=== PATIENT | male | born 1955 | race Caucasian/White ===

== ENCOUNTER 2020-09-15 12:15 | Inpatient (IN) | payer MEDICAID ==
[~2020-09-15] VITALS: Ht 172.7 cm; Wt 113.4 kg
[~2020-09-15 12:15] MED LIST: AML5T PO
[2020-09-15 13:01] LABS: Basophils # (auto) 0.1 10 ^3/uL (0-0.2); Basophils % (auto) 0.8 % (0.0-2.0); Eosinophils # (auto) 0.1 10 ^3/uL (0-0.8); Eosinophils % (auto) 0.7 % (0.0-7.0); Hematocrit 49.3 % (41.0-53.0); Hemoglobin 16.9 g/dL (13.5-17.5); Lymphocytes # (auto) 3.1 10 ^3/uL (0.4-5.4); Lymphocytes % (auto) 24.8 % (10.0-50.0); Mean Corpuscular Hemoglobin 33.8 pg (28.0-32.0); Mean Corpuscular Hgb Conc. 34.2 g/dL (32.0-36.0); Mean Corpuscular Volume 98.8 fL (80.0-100.0); Monocytes # (auto) 0.9 10 ^3/uL (0-1.3); Monocytes % (auto) 7.1 % (0.0-12.0); Neutrophils # (auto) 8.2 10 ^3/uL (1.6-8.6); Neutrophils % (auto) 66.6 % (37.0-80.0); Nucleated Red Blood Cells % 0.1 %; Platelet Count (auto) 308 10^3/uL (140-450); Red Blood Cells 4.99 10^6/uL (4.5-5.90); Red Cell Distribution Width 16.3 % (11.8-14.3); White Blood Cell 12.4 10^3/uL (4.4-10.8)
[2020-09-15 13:17] LABS: Albumin 3.9 g/dL (3.4-5.0); Anion Gap 11 (5-15); Blood Urea Nitrogen 40 mg/dL (7-18); Calcium 9.4 mg/dL (8.5-10.1); Carbon Dioxide 22 mmol/L (21-32); Chloride 105 mmol/L (98-107); Glucose 128 mg/dL (74-106); Lipase 270 U/L (73-393); Magnesium 2.5 mg/dL (1.6-2.6); Potassium 4.3 mmol/L (3.5-5.1); Sodium 138 mmol/L (136-145)
[2020-09-15 13:19] LABS: Alanine Aminotransferase 40 U/L (16-61); Aspartate Aminotransferase 34 U/L (15-37); GFR African American 34 mL/min; GFR Non-African American 28 mL/min
[2020-09-15 13:23] LABS: INR 1.08 (0.9-1.15); Partial Thromboplastin Time 27.4 sec (23.0-31.2)
[2020-09-15 13:24] LABS: Alkaline Phosphatase 112 U/L (45-117); Bilirubin, Total 1.5 mg/dL (0.2-1.0); Total Protein 8.3 g/dL (6.4-8.2)
[2020-09-15] MEDS ORDERED: cefTRIAXone 1GM/50ML D5W 50 ML IV ONE (16:00)
[2020-09-15] MEDS ORDERED: KETOROLAC TROMETH 30 MG/ML 1ML VIAL ONE (17:07)
[2020-09-15] MEDS ORDERED: KETOROLAC TROMETH 30 MG/ML 1ML VIAL IV ONE (17:15)
[2020-09-15] MEDS ORDERED: LORazepam 2MG/ML-1ML VIAL IV ONE (17:15)
[2020-09-15] MEDS ORDERED: PROCHLORPERAZINE EDISYLATE 5 MG/ML 2ML VIAL IV ONE (17:15)
[2020-09-15] MEDS ORDERED: SODIUM CHLORIDE 0.9% 1,000 ML IV ONE ×2 (17:15→17:30)
[2020-09-15] MEDS ORDERED: ONDANSETRON HCL 4 MG/2 ML VIAL IV PRN (17:30)
[2020-09-15] MEDS ORDERED: ACETAMINOPHEN 325 MG TAB PO PRN (17:30)
[2020-09-15] MEDS ORDERED: MORPHINE SULF INJ 2 MG/ML SYRINGE 1ML IV PRN (17:30)
[2020-09-15] MEDS ORDERED: NITROGLYCERIN 0.4 MG SL TAB SL PRN (17:30)
[2020-09-15] MEDS ORDERED: DOCUSATE SOD 100 MG CAP PO PRN (17:30)
[2020-09-15] MEDS ORDERED: MORPHINE SULFATE 4 MG/ML SYR/VIAL IV PRN (17:30)
[2020-09-15] MEDS ORDERED: TEMAZEPAM 15 MG CAP PO PRN (17:30)
[2020-09-15 18:44] LABS: Urine Bacteria NONE SEEN /hpf (None Seen); Urine Blood 2+ /uL (Negative); Urine Hyaline Cast FEW /lpf (0 - 2); Urine Specific Gravity 1.023 (1.001-1.035); Urine WBC 1 /hpf (0 - 3)
[2020-09-15 18:55] LABS: Amphetamine Screen, Urine POSITIVE (NEGATIVE); Barbiturate Scree,Urine NEGATIVE (NEGATIVE); Benzodiazephine Screen, Urine NEGATIVE (NEGATIVE); Cannabinoid Screen, Urine POSITIVE (NEGATIVE); Cocaine Screen, Urine NEGATIVE (NEGATIVE); Opiate Scree,Urine NEGATIVE (NEGATIVE); Phencyclidine Screen, Urine NEGATIVE (NEGATIVE)
[2020-09-15 20:02] VITALS: BP 107/52
[2020-09-15 21:09] VITALS: BP 107/52
[2020-09-15] MEDS ORDERED: LISI-648 PO (22:23)
[2020-09-15] MEDS ORDERED: METO-169 PO (22:23)
[2020-09-15] MEDS ORDERED: APIX5TAB PO (22:23)
[2020-09-15] MEDS ORDERED: CHOL20007 PO (22:23)
[2020-09-15] MEDS ORDERED: ATOR20TA PO (22:23)
[2020-09-15] MEDS ORDERED: FURO1TAB31 PO (22:23)
[2020-09-16 05:39] VITALS: BP 103/60
[2020-09-16 07:22] LABS: Basophils # (auto) 0.1 10 ^3/uL (0-0.2); Basophils % (auto) 0.7 % (0.0-2.0); Eosinophils # (auto) 0.2 10 ^3/uL (0-0.8); Eosinophils % (auto) 1.4 % (0.0-7.0); Hematocrit 47.7 % (41.0-53.0); Lymphocytes # (auto) 3.3 10 ^3/uL (0.4-5.4); Lymphocytes % (auto) 25.5 % (10.0-50.0); Mean Corpuscular Hemoglobin 32.9 pg (28.0-32.0); Mean Corpuscular Hgb Conc. 33.6 g/dL (32.0-36.0); Mean Corpuscular Volume 97.8 fL (80.0-100.0); Monocytes # (auto) 1.3 10 ^3/uL (0-1.3); Monocytes % (auto) 9.7 % (0.0-12.0); Neutrophils # (auto) 8.2 10 ^3/uL (1.6-8.6); Neutrophils % (auto) 62.7 % (37.0-80.0); Nucleated Red Blood Cells % 0.1 %; Platelet Count (auto) 286 10^3/uL (140-450); Red Blood Cells 4.88 10^6/uL (4.5-5.90); Red Cell Distribution Width 16.9 % (11.8-14.3)
[2020-09-16 07:42] LABS: Albumin 3.6 g/dL (3.4-5.0); Calcium 9.1 mg/dL (8.5-10.1); Potassium 4.4 mmol/L (3.5-5.1)
[2020-09-16 07:46] LABS: BUN/Creatinine Ratio 19.9; Bilirubin, Total 1.3 mg/dL (0.2-1.0); Total Protein 7.6 g/dL (6.4-8.2)
[2020-09-16 09:00] VITALS: BP 107/71
[2020-09-16] MEDS ORDERED: cefTRIAXone 1GM/50ML D5W 50 ML IV ONE (10:00)
[2020-09-16] MEDS: amLODIPine BESYLATE 5 MG TAB PO SCH (10:11)
[2020-09-16] MEDS: FAMOTIDINE 20 MG TAB PO SCH (10:12)
[2020-09-16 13:00] VITALS: BP 102/60
[2020-09-16] MEDS ORDERED: SOD CHL 0.45% 1,000 ML IV SCH ×2 (14:00→14:15)
[2020-09-16] MEDS ORDERED: MORPHINE SULF INJ 2 MG/ML SYRINGE 1ML IV PRN (14:15)
[2020-09-16 17:00] VITALS: BP 103/56
[2020-09-16] MEDS: CIPROFLOXACIN HYDROCHLORIDE 250 MG TAB PO SCH (21:39)
[2020-09-16] MEDS: traZODone HCL 50 MG TAB PO SCH (21:40)
[2020-09-16 22:00] VITALS: BP 117/75
[2020-09-17 05:00] VITALS: BP 100/69
[2020-09-17 06:18] LABS: BUN/Creatinine Ratio 17.6; Calcium 8.4 mg/dL (8.5-10.1)
[2020-09-17 08:00] VITALS: BP 95/43
[2020-09-17 09:00] VITALS: BP 95/43
[2020-09-17] MEDS: amLODIPine BESYLATE 5 MG TAB PO SCH (10:00)
[2020-09-17] MEDS: FAMOTIDINE 20 MG TAB PO SCH (10:27)
[2020-09-17] MEDS: CIPROFLOXACIN HYDROCHLORIDE 250 MG TAB PO SCH ×2 (10:27→21:17)
[2020-09-17 13:00] VITALS: BP 122/83
[2020-09-17 17:00] VITALS: BP 116/49
[2020-09-17] MEDS: traZODone HCL 50 MG TAB PO SCH (21:18)
[2020-09-17 22:00] VITALS: BP 131/75
[2020-09-18 05:00] VITALS: BP 114/62
[2020-09-18 08:01] VITALS: BP 149/69
[2020-09-18 08:52] VITALS: BP 149/69
[2020-09-18] MEDS: FAMOTIDINE 20 MG TAB PO SCH (09:49)
[2020-09-18] MEDS: CIPROFLOXACIN HYDROCHLORIDE 250 MG TAB PO SCH ×2 (09:52→21:10)
[2020-09-18] MEDS: amLODIPine BESYLATE 5 MG TAB PO SCH (09:55)
[2020-09-18 13:00] VITALS: BP 118/84
[2020-09-18] MEDS ORDERED: APIXABAN 5 MG TAB PO ONE (13:30)
[2020-09-18] MEDS: METOPROLOL SUCCINATE XL 50 MG TAB PO SCH (13:33)
[2020-09-18 14:27] LABS: Magnesium 2.4 mg/dL (1.6-2.6)
[2020-09-18 16:29] VITALS: BP 142/70
[2020-09-18] MEDS ORDERED: COLCHICINE 0.6 MG CAP PO ONE (22:00)
[2020-09-18] MEDS ORDERED: traZODone HCL 50 MG TAB PO SCH (22:00)
[2020-09-18 22:26] VITALS: BP 115/70
[2020-09-19] MEDS: HYDROcodone-ACET 5/325MG TAB PO PRN ×2 (04:32→11:48)
[2020-09-19 05:13] VITALS: BP 93/68
[2020-09-19 07:55] LABS: Calcium 8.7 mg/dL (8.5-10.1); Potassium 4.3 mmol/L (3.5-5.1)
[2020-09-19 07:58] LABS: BUN/Creatinine Ratio 13.4
[2020-09-19 08:49] VITALS: BP 104/52
[2020-09-19] MEDS: CIPROFLOXACIN HYDROCHLORIDE 250 MG TAB PO SCH (09:33)
[2020-09-19] MEDS: FAMOTIDINE 20 MG TAB PO SCH (09:34)
[2020-09-19] MEDS: amLODIPine BESYLATE 5 MG TAB PO SCH (09:34)
[2020-09-19] MEDS: METOPROLOL SUCCINATE XL 50 MG TAB PO SCH (09:35)
[2020-09-19] MEDS ORDERED: APIXABAN 5 MG TAB PO SCH ×2 (10:00)
[2020-09-19 13:00] VITALS: BP 123/61
== END 2020-09-19 18:30 | disposition home health service (06) | DRG 468 ==
LOC: ER 12:15 → EDBD 12:15 → TELE 12:16 → TELE-CENTR 19:06
PROVIDERS: ADMIT Nurse Practitioner; ATTEND Nurse Practitioner
DX: N32.0 Bladder-neck obstruction (principal); N17.9 Acute kidney failure, unspecified; E27.8 Other specified disorders of adrenal gland; I13.0 Hypertensive heart and chronic kidney disease with heart failure and stage 1 through stage 4 chronic kidney disease, or unspecified chronic kidney disease; I50.9 Heart failure, unspecified; I47.1 Supraventricular tachycardia; N20.0 Calculus of kidney; N30.90 Cystitis, unspecified without hematuria; N40.0 Benign prostatic hyperplasia without lower urinary tract symptoms; N18.9 Chronic kidney disease, unspecified; Z20.822 Contact with and (suspected) exposure to COVID-19; F17.210 Nicotine dependence, cigarettes, uncomplicated; F15.90 Other stimulant use, unspecified, uncomplicated; F10.10 Alcohol abuse, uncomplicated; E66.9 Obesity, unspecified; E78.5 Hyperlipidemia, unspecified; F12.90 Cannabis use, unspecified, uncomplicated; K92.1 Melena; K00.7 Teething syndrome; Z79.01 Long term (current) use of anticoagulants; Z86.74 Personal history of sudden cardiac arrest; Z83.3 Family history of diabetes mellitus; Z87.11 Personal history of peptic ulcer disease; Z87.19 Personal history of other diseases of the digestive system; Z95.810 Presence of automatic (implantable) cardiac defibrillator; Z68.38 Body mass index [BMI] 38.0-38.9, adult; Q27.8 Other specified congenital malformations of peripheral vascular system
CPT/HCPCS: 36415; 71250; 74176; 80048; 80053; 80061; 80307; 81001; 83036; 83690; 83735; 83880; 84443; 84484; 85025; 85610; 85730; 87086; 87426; 93005; 93306; 96361; 96365; 96375; G0378; J0696; J1885

== ENCOUNTER 2021-05-12 12:18 | Inpatient (IN) | payer MEDICAID ==
[~2021-05-12] VITALS: Ht 175.3 cm; Wt 107.4 kg
[~2021-05-12 12:18] MED LIST changes: +APIX5TAB PO; +ATOR20TA PO; +CHOL20007 PO; +FURO1TAB31 PO; +LISI-716 PO; +METO-289 PO
[2021-05-12 14:20] LABS: Basophils # (auto) 0 10 ^3/uL (0-0.2); Basophils % (auto) 0.2 % (0.0-2.0); Eosinophils # (auto) 0.3 10 ^3/uL (0-0.8); Eosinophils % (auto) 2.8 % (0.0-7.0); Hematocrit 39.5 % (41.0-53.0); Hemoglobin 13.2 g/dL (13.5-17.5); Lymphocytes # (auto) 2.6 10 ^3/uL (0.4-5.4); Lymphocytes % (auto) 21.4 % (10.0-50.0); Mean Corpuscular Hemoglobin 32.9 pg (28.0-32.0); Mean Corpuscular Hgb Conc. 33.4 g/dL (32.0-36.0); Mean Corpuscular Volume 98.6 fL (80.0-100.0); Monocytes # (auto) 1.1 10 ^3/uL (0-1.3); Monocytes % (auto) 9.3 % (0.0-12.0); Neutrophils # (auto) 8.2 10 ^3/uL (1.6-8.6); Neutrophils % (auto) 66.3 % (37.0-80.0); Red Blood Cells 4.01 10^6/uL (4.5-5.90); Red Cell Distribution Width 13.8 % (11.8-14.3); White Blood Cell 12.3 10^3/uL (4.4-10.8)
[2021-05-12 14:33] LABS: INR 1.02 (0.9-1.15); Partial Thromboplastin Time 28.9 sec (23.6-33.0)
[2021-05-12 14:34] LABS: Potassium 4.2 mmol/L (3.5-5.1)
[2021-05-12 14:44] LABS: BUN/Creatinine Ratio 17.1; Bilirubin, Total 0.6 mg/dL (0.2-1.0); Calcium 8.9 mg/dL (8.5-10.1)
[2021-05-12] MEDS ORDERED: cefTRIAXone 1GM/50ML D5W 50 ML IV ONE (14:45)
[2021-05-12] MEDS ORDERED: CLINDAMYCIN 600MG IV 50 ML IV ONE (14:45)
[2021-05-12] MEDS ORDERED: ACETAMINOPHEN 325 MG TAB PO PRN (16:15)
[2021-05-12] MEDS ORDERED: MORPHINE SULFATE INJECTION 2 MG/ML SYRG IV PRN (16:15)
[2021-05-12] MEDS ORDERED: NITROGLYCERIN 0.4 MG SL TAB SL PRN (16:15)
[2021-05-12] MEDS ORDERED: HYDROcodone-ACET 5/325MG TAB PO PRN (16:15)
[2021-05-12] MEDS ORDERED: ONDANSETRON HCL 4 MG/2 ML VIAL IV PRN (16:15)
[2021-05-12] MEDS: FUROSEMIDE 40 MG/4 ML VIAL IV SCH (18:51)
[2021-05-12] MEDS: MORPHINE SULFATE INJECTION 2 MG/ML SYRG IV PRN (18:52)
[2021-05-12 20:00] VITALS: BP 97/66
[2021-05-12] MEDS: CLINDAMYCIN 600MG IV 50 ML IV SCH (21:18)
[2021-05-12] MEDS ORDERED: TEMAZEPAM 15 MG CAP PO PRN (22:00)
[2021-05-12 22:12] VITALS: BP 97/66
[2021-05-13] VITALS (7 sets, daily range): BP systolic 82–121; BP diastolic 54–75
[2021-05-13 05:26] LABS: Basophils # (auto) 0.1 10 ^3/uL (0-0.2); Basophils % (auto) 1.2 % (0.0-2.0); Eosinophils # (auto) 0.4 10 ^3/uL (0-0.8); Eosinophils % (auto) 3.9 % (0.0-7.0); Hematocrit 36.2 % (41.0-53.0); Hemoglobin 12.3 g/dL (13.5-17.5); Lymphocytes # (auto) 2.3 10 ^3/uL (0.4-5.4); Lymphocytes % (auto) 24.1 % (10.0-50.0); Mean Corpuscular Hemoglobin 33.1 pg (28.0-32.0); Mean Corpuscular Volume 97.4 fL (80.0-100.0); Monocytes # (auto) 0.8 10 ^3/uL (0-1.3); Monocytes % (auto) 8.8 % (0.0-12.0); Neutrophils # (auto) 5.9 10 ^3/uL (1.6-8.6); Red Blood Cells 3.71 10^6/uL (4.5-5.90); Red Cell Distribution Width 13.5 % (11.8-14.3); White Blood Cell 9.6 10^3/uL (4.4-10.8)
[2021-05-13 05:49] LABS: Albumin 2.8 g/dL (3.4-5.0); Calcium 8.3 mg/dL (8.5-10.1); Potassium 3.9 mmol/L (3.5-5.1)
[2021-05-13 05:56] LABS: BUN/Creatinine Ratio 18.5; Bilirubin, Total 0.6 mg/dL (0.2-1.0); Total Protein 6.4 g/dL (6.4-8.2)
[2021-05-13] MEDS: FUROSEMIDE 40 MG/4 ML VIAL IV SCH ×2 (06:00→17:46)
[2021-05-13] MEDS: CLINDAMYCIN 600MG IV 50 ML IV SCH ×3 (06:52→21:51)
[2021-05-13] MEDS: ENOXAPARIN SOD 40 MG/0.4 ML SYRINGE SC SCH (09:03)
[2021-05-13] MEDS: ZINC SULFATE 220mg CAP or TAB PO SCH (09:03)
[2021-05-13] MEDS: MORPHINE SULFATE INJECTION 2 MG/ML SYRG IV PRN ×3 (13:51→23:15)
[2021-05-14 05:09] VITALS: BP 126/74
[2021-05-14] MEDS: FUROSEMIDE 40 MG/4 ML VIAL IV SCH ×2 (06:00→18:06)
[2021-05-14] MEDS: CLINDAMYCIN 600MG IV 50 ML IV SCH (06:00)
[2021-05-14 06:37] LABS: Basophils # (auto) 0.1 10 ^3/uL (0-0.2); Basophils % (auto) 0.7 % (0.0-2.0); Eosinophils # (auto) 0.1 10 ^3/uL (0-0.8); Eosinophils % (auto) 0.9 % (0.0-7.0); Hematocrit 35.8 % (41.0-53.0); Hemoglobin 11.9 g/dL (13.5-17.5); Lymphocytes # (auto) 1.3 10 ^3/uL (0.4-5.4); Lymphocytes % (auto) 11.4 % (10.0-50.0); Mean Corpuscular Hemoglobin 31.9 pg (28.0-32.0); Mean Corpuscular Hgb Conc. 33.2 g/dL (32.0-36.0); Mean Corpuscular Volume 96.2 fL (80.0-100.0); Monocytes # (auto) 1.4 10 ^3/uL (0-1.3); Monocytes % (auto) 12.2 % (0.0-12.0); Neutrophils # (auto) 8.4 10 ^3/uL (1.6-8.6); Neutrophils % (auto) 74.8 % (37.0-80.0); Red Blood Cells 3.72 10^6/uL (4.5-5.90); Red Cell Distribution Width 13.7 % (11.8-14.3); White Blood Cell 11.3 10^3/uL (4.4-10.8)
[2021-05-14 07:04] LABS: Potassium 4.3 mmol/L (3.5-5.1)
[2021-05-14 07:14] LABS: Albumin 2.7 g/dL (3.4-5.0); BUN/Creatinine Ratio 16.3; Bilirubin, Total 0.8 mg/dL (0.2-1.0); Calcium 8.3 mg/dL (8.5-10.1); Total Protein 6.4 g/dL (6.4-8.2)
[2021-05-14 09:00] VITALS: BP 122/72
[2021-05-14] MEDS: ENOXAPARIN SOD 40 MG/0.4 ML SYRINGE SC SCH (09:38)
[2021-05-14] MEDS: ZINC SULFATE 220mg CAP or TAB PO SCH (09:38)
[2021-05-14] MEDS: MORPHINE SULFATE INJECTION 2 MG/ML SYRG IV PRN ×3 (10:39→21:40)
[2021-05-14] MEDS ORDERED: VANCOMYCIN PER PHARMACY 0 MG IV SCH (12:00)
[2021-05-14 12:30] VITALS: BP 123/67
[2021-05-14] MEDS ORDERED: VANCOMYCIN 1GM/250ML 250 ML IV SCH (13:00)
[2021-05-14] MEDS ORDERED: MULTIPLE VITAMIN 10 ML, MAGNESIUM SULF SDV 50% 8 MEQ, THIAMINE INJ 100 MG in SODIUM CHL... IV SCH (13:30)
[2021-05-14 17:00] VITALS: BP 117/76
[2021-05-14] MEDS ORDERED: HYDROcodone-ACET 10/325MG TAB PO PRN (21:45)
[2021-05-14] MEDS: PREGABALIN 25 MG CAP PO SCH (21:53)
[2021-05-14 22:00] VITALS: BP 110/66
[2021-05-14 23:36] LABS: CRP High Sensitivity 10.3 mg/dL (< 0.3); Uric Acid 11.2 mg/dL (3.5-7.2)
[2021-05-15 04:21] LABS: Urine Bacteria NONE SEEN /hpf (None Seen); Urine Blood Negative /uL (Negative); Urine Mucus FEW (None Seen); Urine Specific Gravity 1.013 (1.001-1.035); Urine WBC 1 /hpf (0 - 3)
[2021-05-15 04:41] LABS: Amphetamine Screen, Urine POSITIVE (NEGATIVE); Barbiturate Scree,Urine NEGATIVE (NEGATIVE); Benzodiazephine Screen, Urine NEGATIVE (NEGATIVE); Cannabinoid Screen, Urine POSITIVE (NEGATIVE); Cocaine Screen, Urine NEGATIVE (NEGATIVE); Opiate Scree,Urine POSITIVE (NEGATIVE); Phencyclidine Screen, Urine NEGATIVE (NEGATIVE)
[2021-05-15] MEDS: MORPHINE SULFATE INJECTION 2 MG/ML SYRG IV PRN ×2 (04:53→11:49)
[2021-05-15 05:00] VITALS: BP 109/65
[2021-05-15] MEDS: FUROSEMIDE 40 MG/4 ML VIAL IV SCH ×2 (05:39→18:30)
[2021-05-15 07:06] LABS: Albumin 2.7 g/dL (3.4-5.0); BUN/Creatinine Ratio 13.8; Calcium 8.7 mg/dL (8.5-10.1); Potassium 4.4 mmol/L (3.5-5.1)
[2021-05-15 07:09] LABS: Total Protein 6.6 g/dL (6.4-8.2)
[2021-05-15 09:00] VITALS: BP 111/57
[2021-05-15] MEDS: ZINC SULFATE 220mg CAP or TAB PO SCH (09:42)
[2021-05-15] MEDS: ENOXAPARIN SOD 40 MG/0.4 ML SYRINGE SC SCH (09:43)
[2021-05-15] MEDS: METOPROLOL TARTRATE 25 MG TAB PO SCH ×2 (09:43→22:11)
[2021-05-15] MEDS: PREGABALIN 25 MG CAP PO SCH ×2 (09:43→22:12)
[2021-05-15 13:00] VITALS: BP 100/59
[2021-05-15] MEDS ORDERED: methylPREDNISolone SOD SUCC 40 MG/ML VL IV ONE (14:00)
[2021-05-15 17:00] VITALS: BP 136/59
[2021-05-15 22:00] VITALS: BP 105/57
[2021-05-15] MEDS: COLCHICINE 0.6 MG CAP PO SCH (22:11)
[2021-05-16 05:00] VITALS: BP 120/56
[2021-05-16] MEDS: FUROSEMIDE 40 MG/4 ML VIAL IV SCH ×2 (05:43→17:41)
[2021-05-16] MEDS: MORPHINE SULFATE INJECTION 2 MG/ML SYRG IV PRN ×2 (05:45→15:36)
[2021-05-16 09:12] VITALS: BP 140/78
[2021-05-16] MEDS: ZINC SULFATE 220mg CAP or TAB PO SCH (09:53)
[2021-05-16] MEDS: METOPROLOL TARTRATE 25 MG TAB PO SCH ×2 (09:54→21:40)
[2021-05-16] MEDS: COLCHICINE 0.6 MG CAP PO SCH ×2 (09:54→21:35)
[2021-05-16] MEDS: PREGABALIN 25 MG CAP PO SCH ×2 (09:54→21:40)
[2021-05-16] MEDS: ENOXAPARIN SOD 40 MG/0.4 ML SYRINGE SC SCH (10:00)
[2021-05-16 13:17] VITALS: BP 102/76
[2021-05-16 16:34] VITALS: BP 96/72
[2021-05-16 22:08] VITALS: BP 125/73
[2021-05-17 05:00] VITALS: BP 129/60
[2021-05-17] MEDS: FUROSEMIDE 40 MG/4 ML VIAL IV SCH ×2 (06:15→18:00)
[2021-05-17 09:50] VITALS: BP 108/60
[2021-05-17] MEDS: ENOXAPARIN SOD 40 MG/0.4 ML SYRINGE SC SCH (10:00)
[2021-05-17] MEDS: METOPROLOL TARTRATE 25 MG TAB PO SCH (10:01)
[2021-05-17] MEDS: PREGABALIN 25 MG CAP PO SCH (10:01)
[2021-05-17] MEDS: ZINC SULFATE 220mg CAP or TAB PO SCH (10:01)
[2021-05-17] MEDS: COLCHICINE 0.6 MG CAP PO SCH (10:02)
[2021-05-17] MEDS: MORPHINE SULFATE INJECTION 2 MG/ML SYRG IV PRN (10:03)
[2021-05-17] MEDS ORDERED: methylPREDNISolone SOD SUCC 40 MG/ML VL IV ONE (11:30)
[2021-05-17 13:23] VITALS: BP 108/72
[2021-05-17 16:19] VITALS: BP 108/60
== END 2021-05-17 17:31 | disposition home or self-care (01) | DRG 383 ==
LOC: ER 12:18 → TELE-WESTW 16:17
PROVIDERS: ADMIT Internal Medicine; ATTEND Internal Medicine
PROC: 4B02XTZ Measurement of Cardiac Defibrillator, External Approach (ICD-10-PCS; principal; 2021-05-16)
DX: L03.113 Cellulitis of right upper limb (principal); I50.23 Acute on chronic systolic (congestive) heart failure; N17.9 Acute kidney failure, unspecified; I47.1 Supraventricular tachycardia; I13.0 Hypertensive heart and chronic kidney disease with heart failure and stage 1 through stage 4 chronic kidney disease, or unspecified chronic kidney disease; Z86.74 Personal history of sudden cardiac arrest; G62.9 Polyneuropathy, unspecified; M10.9 Gout, unspecified; E78.5 Hyperlipidemia, unspecified; F12.90 Cannabis use, unspecified, uncomplicated; F17.210 Nicotine dependence, cigarettes, uncomplicated; M25.571 Pain in right ankle and joints of right foot; M25.572 Pain in left ankle and joints of left foot; M79.642 Pain in left hand; K00.7 Teething syndrome; M25.561 Pain in right knee; Z20.822 Contact with and (suspected) exposure to COVID-19; I25.10 Atherosclerotic heart disease of native coronary artery without angina pectoris; N18.9 Chronic kidney disease, unspecified; E66.9 Obesity, unspecified; Z79.01 Long term (current) use of anticoagulants; Z71.6 Tobacco abuse counseling; Z79.899 Other long term (current) drug therapy; Z83.3 Family history of diabetes mellitus; Z95.810 Presence of automatic (implantable) cardiac defibrillator; Z68.35 Body mass index [BMI] 35.0-35.9, adult
CPT/HCPCS: 36415; 71045; 76881; 80053; 80202; 80307; 81001; 82607; 83880; 84207; 84425; 84443; 84484; 84550; 85025; 85610; 85652; 85730; 86141; 87205; 87426; 89051; 89060; 93005; 93306; 93971; 96365; 96366; 96375; 97162; G0378; J0696; J2405; J3490

== ENCOUNTER 2021-06-15 20:15 | Inpatient (IN) | payer MEDICAID ==
[~2021-06-15] VITALS: Ht 172.7 cm; Wt 101.7 kg
[2021-06-15 22:06] LABS: Basophils # (auto) 0.1 10 ^3/uL (0-0.2); Basophils % (auto) 1.2 % (0.0-2.0); Eosinophils # (auto) 0.2 10 ^3/uL (0-0.8); Eosinophils % (auto) 3.1 % (0.0-7.0); Hematocrit 37.6 % (41.0-53.0); Hemoglobin 12.9 g/dL (13.5-17.5); Lymphocytes # (auto) 1.9 10 ^3/uL (0.4-5.4); Lymphocytes % (auto) 24.5 % (10.0-50.0); Mean Corpuscular Hgb Conc. 34.3 g/dL (32.0-36.0); Mean Corpuscular Volume 96.3 fL (80.0-100.0); Monocytes # (auto) 0.8 10 ^3/uL (0-1.3); Monocytes % (auto) 10.1 % (0.0-12.0); Neutrophils # (auto) 4.7 10 ^3/uL (1.6-8.6); Neutrophils % (auto) 61.1 % (37.0-80.0); White Blood Cell 7.6 10^3/uL (4.4-10.8)
[2021-06-15 22:26] LABS: Albumin 3.8 g/dL (3.4-5.0); Calcium 8.7 mg/dL (8.5-10.1); Magnesium 3.1 mg/dL (1.6-2.6); Potassium 4.2 mmol/L (3.5-5.1)
[2021-06-15 22:33] LABS: Bilirubin, Total 1.3 mg/dL (0.2-1.0); Total Protein 7.4 g/dL (6.4-8.2)
[2021-06-16] VITALS (7 sets, daily range): BP systolic 114–133; BP diastolic 55–75
[2021-06-16] MEDS ORDERED: MORPHINE SULFATE 4 MG/ML SYR/VIAL IV PRN (01:15)
[2021-06-16] MEDS ORDERED: MORPHINE SULFATE INJECTION 2 MG/ML SYRG IV PRN (01:15)
[2021-06-16] MEDS ORDERED: ONDANSETRON HCL 4 MG/2 ML VIAL IV PRN (01:15)
[2021-06-16] MEDS ORDERED: NITROGLYCERIN 0.4 MG SL TAB SL PRN (01:15)
[2021-06-16] MEDS ORDERED: DOCUSATE SOD 100 MG CAP PO PRN (01:15)
[2021-06-16] MEDS ORDERED: ACETAMINOPHEN 325 MG TAB PO PRN (01:15)
[2021-06-16] MEDS ORDERED: TEMAZEPAM 15 MG CAP PO PRN (01:15)
[2021-06-16] MEDS ORDERED: DICY20TA PO (06:16)
[2021-06-16] MEDS ORDERED: HYDR50TA69 PO (06:16)
[2021-06-16] MEDS ORDERED: SIMV10TA84 PO (06:16)
[2021-06-16] MEDS ORDERED: INFLUENZA QUAD 2021-2022 0.5 ML SYRG IM ONE (06:45)
[2021-06-16] MEDS ORDERED: PNEUMOCOCCAL VACC POLYS 25 MCG/0.5 ML VIAL IM ONE (06:45)
[2021-06-16] MEDS: ENOXAPARIN SOD 40 MG/0.4 ML SYRINGE SC SCH (10:05)
[2021-06-16] MEDS: MULTIPLE VITAMIN TAB PO SCH (10:06)
[2021-06-16] MEDS: HYDROcodone-ACET 5/325MG TAB PO PRN (10:06)
[2021-06-16] MEDS: ASCORBIC ACID 500 MG TAB PO SCH ×2 (10:06→22:00)
[2021-06-16] MEDS: ZINC SULFATE 220mg CAP or TAB PO SCH (10:06)
[2021-06-16] MEDS ORDERED: LISINOPRIL 10 MG TAB PO ONE (13:30)
[2021-06-16] MEDS ORDERED: FUROSEMIDE 40 MG TAB PO ONE (13:30)
[2021-06-16] MEDS ORDERED: COLCHICINE 0.6 MG CAP PO ONE (13:30)
[2021-06-16] MEDS ORDERED: CHOLECALCIFEROL (VITD3) 2,000 UNIT CAP/TAB PO ONE (13:30)
[2021-06-16] MEDS: METOPROLOL TARTRATE 50 MG TAB PO SCH ×2 (15:08→22:00)
[2021-06-16] MEDS: APIXABAN 5 MG TAB PO SCH (22:00)
[2021-06-16] MEDS: SIMVASTATIN 10 MG TABLET PO SCH (22:00)
[2021-06-17 05:00] VITALS: BP 101/74
[2021-06-17] MEDS: METOPROLOL TARTRATE 50 MG TAB PO SCH (05:35)
[2021-06-17] MEDS: HYDROcodone-ACET 5/325MG TAB PO PRN (05:36)
[2021-06-17 06:50] LABS: Basophils # (auto) 0.1 10 ^3/uL (0-0.2); Basophils % (auto) 1.3 % (0.0-2.0); Eosinophils # (auto) 0.4 10 ^3/uL (0-0.8); Eosinophils % (auto) 6.2 % (0.0-7.0); Hematocrit 36.6 % (41.0-53.0); Hemoglobin 12.4 g/dL (13.5-17.5); Lymphocytes # (auto) 2.3 10 ^3/uL (0.4-5.4); Lymphocytes % (auto) 32.2 % (10.0-50.0); Mean Corpuscular Hemoglobin 32.8 pg (28.0-32.0); Mean Corpuscular Hgb Conc. 33.9 g/dL (32.0-36.0); Mean Corpuscular Volume 96.7 fL (80.0-100.0); Monocytes # (auto) 0.7 10 ^3/uL (0-1.3); Monocytes % (auto) 10.5 % (0.0-12.0); Neutrophils # (auto) 3.5 10 ^3/uL (1.6-8.6); Neutrophils % (auto) 49.8 % (37.0-80.0); Red Blood Cells 3.79 10^6/uL (4.5-5.90); Red Cell Distribution Width 14.7 % (11.8-14.3)
[2021-06-17 07:08] LABS: Albumin 3.5 g/dL (3.4-5.0); Calcium 8.5 mg/dL (8.5-10.1); Potassium 4.1 mmol/L (3.5-5.1)
[2021-06-17 07:15] LABS: BUN/Creatinine Ratio 13.9; Bilirubin, Total 1.2 mg/dL (0.2-1.0); Total Protein 6.3 g/dL (6.4-8.2)
[2021-06-17 08:56] VITALS: BP 103/66
[2021-06-17] MEDS: MULTIPLE VITAMIN TAB PO SCH (09:53)
[2021-06-17] MEDS: APIXABAN 5 MG TAB PO SCH (09:53)
[2021-06-17] MEDS: ZINC SULFATE 220mg CAP or TAB PO SCH (09:54)
[2021-06-17] MEDS: ENOXAPARIN SOD 40 MG/0.4 ML SYRINGE SC SCH (09:58)
[2021-06-17] MEDS ORDERED: FUROSEMIDE 40 MG TAB PO SCH (10:00)
[2021-06-17] MEDS ORDERED: CHOLECALCIFEROL (VITD3) 2,000 UNIT CAP/TAB PO SCH (10:00)
[2021-06-17] MEDS ORDERED: LISINOPRIL 10 MG TAB PO SCH (10:00)
[2021-06-17] MEDS ORDERED: COLCHICINE 0.6 MG CAP PO SCH (10:00)
[2021-06-17] MEDS: ASCORBIC ACID 500 MG TAB PO SCH (11:51)
[2021-06-17] MEDS: SIMVASTATIN 10 MG TABLET PO SCH (11:51)
[2021-06-17 13:43] VITALS: BP 106/64
[2021-06-17 16:14] VITALS: BP 103/66
[2021-06-17] MEDS ORDERED: METOPROLOL TARTRATE 50 MG TAB PO SCH (22:00)
== END 2021-06-17 17:35 | disposition home or self-care (01) | DRG 201 ==
LOC: EDBD 20:15 → ER 20:15 → TELE 06-16 01:10 → TELE-WESTW 06-16 03:00
PROVIDERS: ADMIT Internal Medicine; ATTEND Internal Medicine
PROC: 4B02XTZ Measurement of Cardiac Defibrillator, External Approach (ICD-10-PCS; principal; 2021-06-16)
DX: I47.2 Ventricular tachycardia (principal); R57.9 Shock, unspecified; I13.0 Hypertensive heart and chronic kidney disease with heart failure and stage 1 through stage 4 chronic kidney disease, or unspecified chronic kidney disease; I50.42 Chronic combined systolic (congestive) and diastolic (congestive) heart failure; E66.01 Morbid (severe) obesity due to excess calories; E78.5 Hyperlipidemia, unspecified; F12.90 Cannabis use, unspecified, uncomplicated; F15.10 Other stimulant abuse, uncomplicated; Z20.822 Contact with and (suspected) exposure to COVID-19; M10.9 Gout, unspecified; N18.9 Chronic kidney disease, unspecified; Z79.01 Long term (current) use of anticoagulants; Z79.899 Other long term (current) drug therapy; Z86.74 Personal history of sudden cardiac arrest; Z28.21 Immunization not carried out because of patient refusal; Z83.3 Family history of diabetes mellitus; Z87.891 Personal history of nicotine dependence; Z95.810 Presence of automatic (implantable) cardiac defibrillator; Z68.34 Body mass index [BMI] 34.0-34.9, adult
CPT/HCPCS: 36415; 71045; 80053; 83735; 83880; 84484; 85025; 87081; 87426; 93005; G0378

== ENCOUNTER 2022-10-28 13:14 | Inpatient (IN) | payer MEDICARE, MEDICAID ==
[~2022-10-28] VITALS: Ht 175.3 cm; Wt 115.7 kg
[~2022-10-28 13:14] MED LIST changes: +DICY20TA PO; +HYDR50TA69 PO; +SIMV10TA84 PO
[2022-10-28] MEDS ORDERED: methylPREDNISolone SOD SUCC 125 MG/2 ML VL IV ONE (13:45)
[2022-10-28] MEDS ORDERED: ONDANSETRON HCL 4 MG/2 ML VIAL IV ONE (13:45)
[2022-10-28] MEDS ORDERED: MORPHINE SULFATE INJ 2 MG/ml SYRG IV ONE (13:45)
[2022-10-28 14:28] LABS: Basophils # (auto) 0.1 10 ^3/uL (0-0.2); Basophils % (auto) 1.3 % (0.0-2.0); Eosinophils # (auto) 0.4 10 ^3/uL (0-0.8); Eosinophils % (auto) 4.4 % (0.0-7.0); Hematocrit 38.6 % (41.0-53.0); Hemoglobin 12.9 g/dL (13.5-17.5); Lymphocytes % (auto) 21.3 % (10.0-50.0); Mean Corpuscular Hemoglobin 33.6 pg (28.0-32.0); Mean Corpuscular Hgb Conc. 33.4 g/dL (32.0-36.0); Mean Corpuscular Volume 100.5 fL (80.0-100.0); Monocytes # (auto) 0.9 10 ^3/uL (0-1.3); Monocytes % (auto) 9.5 % (0.0-12.0); Neutrophils # (auto) 5.9 10 ^3/uL (1.6-8.6); Neutrophils % (auto) 63.5 % (37.0-80.0); Nucleated Red Blood Cells % 0.1 %; Red Blood Cells 3.84 10^6/uL (4.5-5.90); Red Cell Distribution Width 14.5 % (11.8-14.3); White Blood Cell 9.4 10^3/uL (4.4-10.8)
[2022-10-28 14:38] LABS: Albumin 2.9 g/dL (3.4-5.0); Potassium 4.5 mmol/L (3.5-5.1)
[2022-10-28 14:43] LABS: BUN/Creatinine Ratio 15.3 (10.0-20.0); Bilirubin, Total 0.6 mg/dL (0.2-1.0); Uric Acid 8.8 mg/dL (3.5-7.2)
[2022-10-28] MEDS ORDERED: PRED20TA2 PO (15:08)
[2022-10-28] MEDS ORDERED: HYDR-4902 PO (15:08)
[2022-10-28] MEDS ORDERED: FENO48TA12 PO (18:22)
[2022-10-28] MEDS ORDERED: FURO40TA4 PO (18:22)
[2022-10-28] MEDS ORDERED: ACETAMINOPHEN 325 MG TAB PO PRN (18:30)
[2022-10-28] MEDS ORDERED: NITROGLYCERIN 0.4 MG SL TAB SL PRN ×2 (18:30→22:00)
[2022-10-28] MEDS ORDERED: DOCUSATE SOD 100 MG CAP PO PRN ×2 (18:30→22:00)
[2022-10-28] MEDS ORDERED: MORPHINE SULFATE INJ 2 MG/ml SYRG IV PRN ×2 (18:30→22:00)
[2022-10-28] MEDS ORDERED: ONDANSETRON HCL 4 MG/2 ML VIAL IV PRN ×2 (18:30→22:00)
[2022-10-28] MEDS ORDERED: SODIUM CHLORIDE 0.9% 1,000 ML IV ONE (18:45)
[2022-10-28] MEDS ORDERED: SODIUM CHLOR 0.9% PF (SALINE LOCK) 10ML VIAL/SYR IV SCH (22:00)
[2022-10-29] MEDS: DICYCLOMINE HCL 10 MG CAP PO SCH ×4 (00:16→21:33)
[2022-10-29] MEDS: HYDROcodone-ACET 5/325MG TAB PO PRN (00:16)
[2022-10-29] MEDS: TEMAZEPAM 15 MG CAP PO PRN ×2 (00:17→22:26)
[2022-10-29 05:34] LABS: Hematocrit 36.4 % (41.0-53.0); Mean Corpuscular Volume 100.1 fL (80.0-100.0); Monocytes # (auto) 0.3 10 ^3/uL (0-1.3); Red Blood Cells 3.63 10^6/uL (4.5-5.90); Red Cell Distribution Width 14.5 % (11.8-14.3)
[2022-10-29 05:36] LABS: Basophils # (auto) 0 10 ^3/uL (0-0.2); Basophils % (auto) 0.3 % (0.0-2.0); Eosinophils # (auto) 0.1 10 ^3/uL (0-0.8); Eosinophils % (auto) 0.4 % (0.0-7.0); Hemoglobin 12.6 g/dL (13.5-17.5); Lymphocytes # (auto) 0.8 10 ^3/uL (0.4-5.4); Lymphocytes % (auto) 5.7 % (10.0-50.0); Mean Corpuscular Hemoglobin 34.6 pg (28.0-32.0); Mean Corpuscular Hgb Conc. 34.5 g/dL (32.0-36.0); Monocytes % (auto) 2.3 % (0.0-12.0); Neutrophils # (auto) 13.3 10 ^3/uL (1.6-8.6); Neutrophils % (auto) 91.3 % (37.0-80.0); White Blood Cell 14.5 10^3/uL (4.4-10.8)
[2022-10-29 05:57] LABS: Albumin 2.7 g/dL (3.4-5.0); BUN/Creatinine Ratio 15.8 (10.0-20.0); Calcium 9.3 mg/dL (8.5-10.1); Potassium 4.7 mmol/L (3.5-5.1)
[2022-10-29 05:59] LABS: Bilirubin, Total 0.4 mg/dL (0.2-1.0); Total Protein 6.8 g/dL (6.4-8.2)
[2022-10-29] MEDS ORDERED: ENOXAPARIN SOD 40 MG/0.4 ML SYRINGE SC SCH (10:00)
[2022-10-29] MEDS ORDERED: LISINOPRIL 10 MG TAB PO SCH (10:00)
[2022-10-29] MEDS ORDERED: APIXABAN 5 MG TAB PO SCH (10:00)
[2022-10-29] MEDS ORDERED: FUROSEMIDE 40 MG TAB PO SCH (10:00)
[2022-10-29] MEDS: APIXABAN 5 MG TAB PO SCH ×2 (10:45→21:33)
[2022-10-29] MEDS: PRAVASTATIN SODIUM 20 MG TAB PO SCH (10:47)
[2022-10-29] MEDS: CHOLECALCIFEROL (VITD3) 2,000 UNIT CAP/TAB PO SCH (10:47)
[2022-10-29 15:06] LABS: Alcohol, Urine < 3.0 mg/dL (0-10); Barbiturate Scree,Urine NEGATIVE (NEGATIVE); Cannabinoid Screen, Urine POSITIVE (NEGATIVE)
[2022-10-29 15:15] LABS: Amphetamine Screen, Urine NEGATIVE (NEGATIVE); Benzodiazephine Screen, Urine NEGATIVE (NEGATIVE); Cocaine Screen, Urine NEGATIVE (NEGATIVE); Opiate Scree,Urine NEGATIVE (NEGATIVE); Phencyclidine Screen, Urine NEGATIVE (NEGATIVE)
[2022-10-29 18:25] LABS: Urine Bacteria FEW /hpf (None Seen); Urine Blood Negative /uL (Negative); Urine Hyaline Cast FEW /lpf (0 - 2); Urine WBC 2 /hpf (0 - 3)
[2022-10-29] MEDS: FUROSEMIDE 40 MG TAB PO SCH ×2 (18:39→21:36)
[2022-10-29] MEDS: SODIUM BICARBONATE 650 MG TAB PO SCH (21:32)
[2022-10-29 22:00] VITALS: BP 120/52
[2022-10-30 05:00] VITALS: BP 92/57
[2022-10-30] MEDS: SODIUM BICARBONATE 650 MG TAB PO SCH ×3 (05:15→21:54)
[2022-10-30] MEDS: DICYCLOMINE HCL 10 MG CAP PO SCH ×3 (05:15→21:54)
[2022-10-30 06:22] LABS: Basophils # (auto) 0.1 10 ^3/uL (0-0.2); Hematocrit 41.1 % (41.0-53.0); Neutrophils # (auto) 8.7 10 ^3/uL (1.6-8.6)
[2022-10-30 06:24] LABS: Basophils % (auto) 0.8 % (0.0-2.0); Eosinophils # (auto) 0.2 10 ^3/uL (0-0.8); Eosinophils % (auto) 1.2 % (0.0-7.0); Hemoglobin 13.8 g/dL (13.5-17.5); Lymphocytes # (auto) 3.2 10 ^3/uL (0.4-5.4); Lymphocytes % (auto) 24.7 % (10.0-50.0); Mean Corpuscular Hgb Conc. 33.4 g/dL (32.0-36.0); Mean Corpuscular Volume 101.7 fL (80.0-100.0); Monocytes # (auto) 0.8 10 ^3/uL (0-1.3); Monocytes % (auto) 6.1 % (0.0-12.0); Neutrophils % (auto) 67.2 % (37.0-80.0); Nucleated Red Blood Cells % 0.2 %; Red Blood Cells 4.04 10^6/uL (4.5-5.90); Red Cell Distribution Width 14.3 % (11.8-14.3); White Blood Cell 12.9 10^3/uL (4.4-10.8)
[2022-10-30 06:49] LABS: Potassium 5.1 mmol/L (3.5-5.1)
[2022-10-30 07:00] LABS: BUN/Creatinine Ratio 20.1 (10.0-20.0); Calcium 9.8 mg/dL (8.5-10.1); Magnesium 2.8 mg/dL (1.6-2.6)
[2022-10-30 09:00] VITALS: BP 107/79
[2022-10-30] MEDS: PRAVASTATIN SODIUM 20 MG TAB PO SCH (09:58)
[2022-10-30] MEDS: CHOLECALCIFEROL (VITD3) 2,000 UNIT CAP/TAB PO SCH (09:58)
[2022-10-30] MEDS: APIXABAN 5 MG TAB PO SCH ×2 (09:58→21:54)
[2022-10-30] MEDS ORDERED: PANTOPRAZOLE 40 MG TAB PO SCH (10:00)
[2022-10-30] MEDS ORDERED: METOPROLOL SUCCINATE XL 50 MG TAB PO SCH (10:00)
[2022-10-30] MEDS: FUROSEMIDE 40 MG TAB PO SCH (10:05)
[2022-10-30] MEDS: HYDROcodone-ACET 5/325MG TAB PO PRN (10:20)
[2022-10-30 13:00] VITALS: BP 118/75
[2022-10-30 17:00] VITALS: BP 98/74
[2022-10-30 22:00] VITALS: BP 136/74
[2022-10-30] MEDS: AMIODARONE HCL 200 MG TAB PO SCH (22:00)
[2022-10-31 05:00] VITALS: BP 147/77
[2022-10-31] MEDS: DICYCLOMINE HCL 10 MG CAP PO SCH ×2 (05:48→13:43)
[2022-10-31] MEDS: SODIUM BICARBONATE 650 MG TAB PO SCH ×2 (05:49→13:43)
[2022-10-31 09:00] VITALS: BP 107/74
[2022-10-31] MEDS ORDERED: ALLOPURINOL 100 MG TAB PO SCH (10:00)
[2022-10-31] MEDS ORDERED: predniSONE 20 MG TAB PO SCH (10:00)
[2022-10-31] MEDS ORDERED: FUROSEMIDE 40 MG TAB PO SCH (10:00)
[2022-10-31] MEDS: APIXABAN 5 MG TAB PO SCH (10:17)
[2022-10-31] MEDS: AMIODARONE HCL 200 MG TAB PO SCH (10:17)
[2022-10-31] MEDS: CHOLECALCIFEROL (VITD3) 2,000 UNIT CAP/TAB PO SCH (10:18)
[2022-10-31] MEDS: PRAVASTATIN SODIUM 20 MG TAB PO SCH (10:18)
[2022-10-31 13:00] VITALS: BP 118/85
[2022-10-31] MEDS ORDERED: PRAV20TA3 PO (13:37)
[2022-10-31] MEDS ORDERED: METO-6 PO (13:37)
[2022-10-31] MEDS ORDERED: AMIO200T33 PO (13:37)
[2022-10-31] MEDS ORDERED: PRED20TA2 PO (13:37)
[2022-10-31] MEDS ORDERED: ALL100T PO (13:37)
[2022-10-31] MEDS ORDERED: SODI650T PO (13:37)
[2022-10-31] MEDS ORDERED: HYDR-4902 PO (13:40)
[2022-10-31 14:14] VITALS: BP 107/74
[2022-10-31 16:48] VITALS: BP 119/84
== END 2022-10-31 17:43 | disposition home health service (06) | DRG 553 ==
LOC: ER 13:14 → EDBD 13:14 → TELE 18:29 → TELE-WESTW 10-29 15:56
PROVIDERS: ADMIT Nurse Practitioner Family; ATTEND Nurse Practitioner
DX: M10.9 Gout, unspecified (principal); I50.33 Acute on chronic diastolic (congestive) heart failure; I13.0 Hypertensive heart and chronic kidney disease with heart failure and stage 1 through stage 4 chronic kidney disease, or unspecified chronic kidney disease; E87.20 Acidosis, unspecified; I47.20 Ventricular tachycardia, unspecified; N18.30 Chronic kidney disease, stage 3 unspecified; E66.01 Morbid (severe) obesity due to excess calories; E78.5 Hyperlipidemia, unspecified; E88.09 Other disorders of plasma-protein metabolism, not elsewhere classified; E27.8 Other specified disorders of adrenal gland; F17.210 Nicotine dependence, cigarettes, uncomplicated; Z60.2 Problems related to living alone; N40.0 Benign prostatic hyperplasia without lower urinary tract symptoms; Z86.74 Personal history of sudden cardiac arrest; F15.10 Other stimulant abuse, uncomplicated; I49.3 Ventricular premature depolarization; K40.20 Bilateral inguinal hernia, without obstruction or gangrene, not specified as recurrent; N32.0 Bladder-neck obstruction; Z79.01 Long term (current) use of anticoagulants; Z95.810 Presence of automatic (implantable) cardiac defibrillator; Z79.899 Other long term (current) drug therapy; Z82.49 Family history of ischemic heart disease and other diseases of the circulatory system; Z83.3 Family history of diabetes mellitus; Z87.11 Personal history of peptic ulcer disease; Z87.442 Personal history of urinary calculi; Z68.34 Body mass index [BMI] 34.0-34.9, adult
CPT/HCPCS: 36415; 71046; 76775; 80048; 80053; 80061; 80307; 81001; 82550; 83735; 83880; 84443; 84550; 85025; 93005; 93306; 96374; 97110; 97116; 97163; 97530; G0378; J2405

== ENCOUNTER 2023-01-23 23:12 | Inpatient (IN) | payer MEDICARE, MEDICAID ==
[~2023-01-23] VITALS: Ht 175.3 cm; Wt 119.0 kg
[~2023-01-23 23:12] MED LIST changes: +ALL100T PO; +AMIO200T33 PO; -AML5T PO; -ATOR20TA PO; +FENO48TA13 PO; -FURO1TAB31 PO; +FURO40TA4 PO; +HYDR-4902 PO; -LISI-716 PO; -METO-289 PO; +METO-6 PO; +PRAV20TA3 PO; +PRED20TA2 PO; -SIMV10TA84 PO; +SODI650T PO
[2023-01-24] VITALS (18 sets, daily range): BP systolic 96–120; BP diastolic 43–93; PULSE 51–78; RESP 12–23; TEMP 96.7–99.7; O2SAT 92–100
[2023-01-24] MEDS ORDERED: ONDANSETRON HCL 4 MG/2 ML VIAL IV ONE (01:45)
[2023-01-24] MEDS ORDERED: DexAMETHasone SOD PHOS 10MG/1ML VIAL INJ IV ONE (01:45)
[2023-01-24] MEDS ORDERED: SODIUM CHLORIDE 0.9% 500 ML IV ONE (01:45)
[2023-01-24] MEDS ORDERED: KETOROLAC TROMETH 30 MG/ML 1ML VIAL IV ONE (01:45)
[2023-01-24 02:18] LABS: Basophils # (auto) 0.1 10 ^3/uL (0-0.2); Basophils % (auto) 0.6 % (0.0-2.0); Eosinophils # (auto) 0.1 10 ^3/uL (0-0.8); Eosinophils % (auto) 0.9 % (0.0-7.0); Hematocrit 35.9 % (41.0-53.0); Hemoglobin 11.5 g/dL (13.5-17.5); Lymphocytes # (auto) 1.4 10 ^3/uL (0.4-5.4); Lymphocytes % (auto) 11.6 % (10.0-50.0); Mean Corpuscular Hemoglobin 32.3 pg (28.0-32.0); Mean Corpuscular Hgb Conc. 32.1 g/dL (32.0-36.0); Mean Corpuscular Volume 100.5 fL (80.0-100.0); Monocytes # (auto) 1.2 10 ^3/uL (0-1.3); Monocytes % (auto) 9.9 % (0.0-12.0); Neutrophils # (auto) 9.5 10 ^3/uL (1.6-8.6); Nucleated Red Blood Cells % 0.1 %; Red Blood Cells 3.57 10^6/uL (4.5-5.90); Red Cell Distribution Width 16.3 % (11.8-14.3); White Blood Cell 12.3 10^3/uL (4.4-10.8)
[2023-01-24 06:12] LABS: BUN/Creatinine Ratio 15.3 (10.0-20.0); Potassium 4.6 mmol/L (3.5-5.1)
[2023-01-24 06:13] LABS: Albumin 3.2 g/dL (3.4-5.0); Bilirubin, Total 0.6 mg/dL (0.2-1.0); Total Protein 7.2 g/dL (6.4-8.2)
[2023-01-24 06:14] LABS: Uric Acid 8.4 mg/dL (3.5-7.2)
[2023-01-24] MEDS ORDERED: MIDAZOLAM HCL 2MG/2ML 2ml VIAL (1mg/ml) IV ONE (06:45)
[2023-01-24] MEDS ORDERED: HYDROmorphone HCL 2 MG/ML VL/or syr IV ONE (07:15)
[2023-01-24] MEDS ORDERED: ACETAMINOPHEN 325 MG TAB PO PRN (08:00)
[2023-01-24] MEDS ORDERED: NITROGLYCERIN 0.4 MG SL TAB SL PRN (08:00)
[2023-01-24] MEDS ORDERED: ONDANSETRON HCL 4 MG/2 ML VIAL IV PRN (08:00)
[2023-01-24] MEDS ORDERED: MORPHINE SULFATE INJ 2 MG/ml SYRG IV PRN (08:00)
[2023-01-24] MEDS ORDERED: DOCUSATE SOD 100 MG CAP PO PRN (08:00)
[2023-01-24] MEDS: SODIUM CHLORIDE 0.9% 1,000 ML IV SCH (08:15)
[2023-01-24] MEDS ORDERED: AMIODARONE 450mg/250ml AE 250 ML IV SCH (09:00)
[2023-01-24] MEDS ORDERED: HEPARIN SODIUM (PORCINE) 5000 UNITS/ML 1ML VIAL SC SCH (10:00)
[2023-01-24] MEDS: ASPirin 81 mg TAB PO SCH (10:10)
[2023-01-24 12:22] LABS: Alcohol, Urine < 3.0 mg/dL (0-10); Cannabinoid Screen, Urine POSITIVE (NEGATIVE)
[2023-01-24 13:44] LABS: Amphetamine Screen, Urine NEGATIVE (NEGATIVE); Barbiturate Scree,Urine NEGATIVE (NEGATIVE); Benzodiazephine Screen, Urine POSITIVE (NEGATIVE); Cocaine Screen, Urine NEGATIVE (NEGATIVE); Opiate Scree,Urine NEGATIVE (NEGATIVE); Phencyclidine Screen, Urine NEGATIVE (NEGATIVE)
[2023-01-24] MEDS: AMIODARONE 450mg/250ml AE 250 ML IV SCH (15:28)
[2023-01-24] MEDS ORDERED: SIMV10TA20 PO (17:01)
[2023-01-24] MEDS ORDERED: CITA10TA5 PO (17:01)
[2023-01-24] MEDS ORDERED: LISI10TA34 PO (17:01)
[2023-01-24] MEDS ORDERED: HYDROcodone-ACET 10/325MG TAB PO PRN (17:15)
[2023-01-24 18:52] LABS: Potassium 5.4 mmol/L (3.5-5.1)
[2023-01-24 18:59] LABS: Albumin 2.8 g/dL (3.4-5.0); BUN/Creatinine Ratio 17.2 (10.0-20.0); Bilirubin, Total 0.4 mg/dL (0.2-1.0); Calcium 8.5 mg/dL (8.5-10.1); Phosphorus 3.4 mg/dL (2.5-4.90); Total Protein 6.1 g/dL (6.4-8.2)
[2023-01-24] MEDS ORDERED: traZODone HCL 50 MG TAB PO PRN (21:15)
[2023-01-24] MEDS: APIXABAN 5 MG TAB PO SCH (21:50)
[2023-01-24] MEDS: SODIUM BICARBONATE 650 MG TAB PO SCH (21:50)
[2023-01-24] MEDS: ATORVASTATIN 20 MG TAB PO SCH (21:51)
[2023-01-24] MEDS: DICYCLOMINE HCL 10 MG CAP PO SCH (21:53)
[2023-01-25] VITALS (32 sets, daily range): BP systolic 91–138; BP diastolic 40–73; PULSE 44–81; RESP 8–24; TEMP 97–98.1; O2SAT 93–100
[2023-01-25] MEDS: SODIUM CHLORIDE 0.9% 1,000 ML IV SCH ×3 (00:37→15:42)
[2023-01-25 05:18] LABS: Potassium 5.1 mmol/L (3.5-5.1)
[2023-01-25 05:27] LABS: Albumin 2.7 g/dL (3.4-5.0); BUN/Creatinine Ratio 18.9 (10.0-20.0); Bilirubin, Total 0.3 mg/dL (0.2-1.0); Calcium 8.5 mg/dL (8.5-10.1); Total Protein 6.7 g/dL (6.4-8.2); Uric Acid 7.2 mg/dL (3.5-7.2)
[2023-01-25] MEDS: DICYCLOMINE HCL 10 MG CAP PO SCH ×3 (05:51→22:28)
[2023-01-25] MEDS: AMIODARONE 450mg/250ml AE 250 ML IV SCH (05:57)
[2023-01-25 06:10] LABS: Basophils # (auto) 0 10 ^3/uL (0-0.2); Basophils % (auto) 0.3 % (0.0-2.0); Eosinophils # (auto) 0 10 ^3/uL (0-0.8); Hematocrit 34.4 % (41.0-53.0); Hemoglobin 11.4 g/dL (13.5-17.5); Lymphocytes # (auto) 1.7 10 ^3/uL (0.4-5.4); Lymphocytes % (auto) 9.6 % (10.0-50.0); Mean Corpuscular Hemoglobin 33.2 pg (28.0-32.0); Mean Corpuscular Hgb Conc. 33.3 g/dL (32.0-36.0); Mean Corpuscular Volume 99.6 fL (80.0-100.0); Monocytes # (auto) 1.1 10 ^3/uL (0-1.3); Monocytes % (auto) 6.5 % (0.0-12.0); Neutrophils # (auto) 14.5 10 ^3/uL (1.6-8.6); Neutrophils % (auto) 83.6 % (37.0-80.0); Red Blood Cells 3.45 10^6/uL (4.5-5.90); White Blood Cell 17.3 10^3/uL (4.4-10.8)
[2023-01-25] MEDS: ASPirin 81 mg TAB PO SCH (07:56)
[2023-01-25] MEDS: APIXABAN 5 MG TAB PO SCH ×2 (07:56→22:29)
[2023-01-25] MEDS: METOPROLOL SUCCINATE XL 50 MG TAB PO SCH (07:57)
[2023-01-25] MEDS: CITALOPRAM HYDROBR 20 MG TAB PO SCH (07:57)
[2023-01-25] MEDS: ALLOPURINOL 100 MG TAB PO SCH (07:57)
[2023-01-25] MEDS: predniSONE 20 MG TAB PO SCH (07:57)
[2023-01-25] MEDS: SODIUM BICARBONATE 650 MG TAB PO SCH ×2 (07:58→22:29)
[2023-01-25] MEDS ORDERED: FUROSEMIDE 20 MG TAB PO SCH (10:00)
[2023-01-25] MEDS ORDERED: COLCHICINE 0.6 MG CAP PO SCH (10:00)
[2023-01-25] MEDS ORDERED: LISINOPRIL 10 MG TAB PO SCH (10:00)
[2023-01-25] MEDS ORDERED: CYANOCOBALAMIN (B-12) 1000 MCG/1 ML VIAL IM ONE (19:30)
[2023-01-25] MEDS: ATORVASTATIN 20 MG TAB PO SCH (22:29)
[2023-01-25] MEDS: traZODone HCL 50 MG TAB PO PRN (22:29)
[2023-01-26] VITALS (23 sets, daily range): BP systolic 84–176; BP diastolic 36–85; PULSE 52–67; RESP 7–26; TEMP 97.4–98; O2SAT 90–99
[2023-01-26] MEDS: AMIODARONE 450mg/250ml AE 250 ML IV SCH ×3 (04:20→21:49)
[2023-01-26 06:04] LABS: Basophils # (auto) 0 10 ^3/uL (0-0.2); Basophils % (auto) 0.2 % (0.0-2.0); Eosinophils # (auto) 0 10 ^3/uL (0-0.8); Eosinophils % (auto) 0.2 % (0.0-7.0); Hematocrit 32.8 % (41.0-53.0); Hemoglobin 10.9 g/dL (13.5-17.5); Lymphocytes # (auto) 1.7 10 ^3/uL (0.4-5.4); Lymphocytes % (auto) 12.5 % (10.0-50.0); Mean Corpuscular Hemoglobin 32.7 pg (28.0-32.0); Mean Corpuscular Hgb Conc. 33.3 g/dL (32.0-36.0); Mean Corpuscular Volume 98.4 fL (80.0-100.0); Monocytes # (auto) 0.8 10 ^3/uL (0-1.3); Monocytes % (auto) 5.9 % (0.0-12.0); Neutrophils # (auto) 10.7 10 ^3/uL (1.6-8.6); Neutrophils % (auto) 81.2 % (37.0-80.0); Nucleated Red Blood Cells % 0.1 %; Red Blood Cells 3.34 10^6/uL (4.5-5.90); White Blood Cell 13.2 10^3/uL (4.4-10.8)
[2023-01-26 06:34] LABS: Albumin 2.7 g/dL (3.4-5.0); BUN/Creatinine Ratio 21.3 (10.0-20.0); Bilirubin, Total 0.2 mg/dL (0.2-1.0); Calcium 8.5 mg/dL (8.5-10.1); Total Protein 5.8 g/dL (6.4-8.2)
[2023-01-26 07:01] LABS: Potassium 5.6 mmol/L (3.5-5.1)
[2023-01-26] MEDS ORDERED: SODIUM ZIRCONIUM CYCL 10 GM PAK PO ONE ×3 (07:15→17:30)
[2023-01-26] MEDS: CYANOCOBALAMIN 500 MCG TAB PO SCH (08:05)
[2023-01-26] MEDS: predniSONE 20 MG TAB PO SCH (08:05)
[2023-01-26] MEDS: SODIUM BICARBONATE 650 MG TAB PO SCH ×2 (08:05→21:49)
[2023-01-26] MEDS: ALLOPURINOL 100 MG TAB PO SCH (08:06)
[2023-01-26] MEDS: DICYCLOMINE HCL 10 MG CAP PO SCH ×3 (08:06→21:48)
[2023-01-26] MEDS: METOPROLOL SUCCINATE XL 50 MG TAB PO SCH (08:06)
[2023-01-26] MEDS: CITALOPRAM HYDROBR 20 MG TAB PO SCH (08:06)
[2023-01-26] MEDS: APIXABAN 5 MG TAB PO SCH ×2 (08:06→21:50)
[2023-01-26] MEDS: ASPirin 81 mg TAB PO SCH (08:07)
[2023-01-26] MEDS: SODIUM CHLORIDE 0.9% 1,000 ML IV SCH (08:20)
[2023-01-26] MEDS ORDERED: SODIUM BICARBONATE 50ML VIAL 75 ML in SOD CHL 0.45% 1,000 ML IV ONE (17:30)
[2023-01-26] MEDS: ATORVASTATIN 20 MG TAB PO SCH (21:48)
[2023-01-26] MEDS: AMIODARONE HCL 200 MG TAB PO SCH (21:48)
[2023-01-26] MEDS: traZODone HCL 50 MG TAB PO PRN (21:55)
[2023-01-27] VITALS (7 sets, daily range): BP systolic 113–151; BP diastolic 58–80; PULSE 54–70; RESP 16–18; TEMP 97.4–98.5; O2SAT 94–97
[2023-01-27] MEDS: DICYCLOMINE HCL 10 MG CAP PO SCH ×3 (05:46→21:17)
[2023-01-27] MEDS: METOPROLOL SUCCINATE XL 50 MG TAB PO SCH (09:42)
[2023-01-27] MEDS: predniSONE 20 MG TAB PO SCH (09:42)
[2023-01-27] MEDS: APIXABAN 5 MG TAB PO SCH ×2 (09:43→21:17)
[2023-01-27] MEDS: ASPirin 81 mg TAB PO SCH (09:44)
[2023-01-27] MEDS: amLODIPine BESYLATE 5 MG TAB PO SCH (09:50)
[2023-01-27] MEDS: CITALOPRAM HYDROBR 20 MG TAB PO SCH (09:50)
[2023-01-27] MEDS: ALLOPURINOL 100 MG TAB PO SCH (09:51)
[2023-01-27] MEDS: CYANOCOBALAMIN 500 MCG TAB PO SCH (09:51)
[2023-01-27] MEDS: SODIUM BICARBONATE 650 MG TAB PO SCH ×2 (09:52→21:17)
[2023-01-27] MEDS: AMIODARONE HCL 200 MG TAB PO SCH ×2 (10:08→21:18)
[2023-01-27 13:49] LABS: Basophils # (auto) 0 10 ^3/uL (0-0.2); Basophils % (auto) 0.4 % (0.0-2.0); Eosinophils # (auto) 0.1 10 ^3/uL (0-0.8); Hemoglobin 10.9 g/dL (13.5-17.5); Lymphocytes # (auto) 0.8 10 ^3/uL (0.4-5.4); Lymphocytes % (auto) 7.6 % (10.0-50.0); Mean Corpuscular Hemoglobin 32.6 pg (28.0-32.0); Mean Corpuscular Hgb Conc. 33.1 g/dL (32.0-36.0); Mean Corpuscular Volume 98.6 fL (80.0-100.0); Monocytes # (auto) 0.6 10 ^3/uL (0-1.3); Monocytes % (auto) 5.9 % (0.0-12.0); Neutrophils # (auto) 8.9 10 ^3/uL (1.6-8.6); Neutrophils % (auto) 85.1 % (37.0-80.0); Red Blood Cells 3.35 10^6/uL (4.5-5.90); White Blood Cell 10.4 10^3/uL (4.4-10.8)
[2023-01-27 13:57] LABS: Albumin 2.7 g/dL (3.4-5.0); Calcium 8.5 mg/dL (8.5-10.1); Potassium 4.5 mmol/L (3.5-5.1)
[2023-01-27 14:00] LABS: Bilirubin, Total 0.4 mg/dL (0.2-1.0); Total Protein 6.5 g/dL (6.4-8.2)
[2023-01-27] MEDS: traZODone HCL 50 MG TAB PO PRN (21:17)
[2023-01-27] MEDS: ATORVASTATIN 20 MG TAB PO SCH (21:18)
[2023-01-28] VITALS (7 sets, daily range): BP systolic 113–139; BP diastolic 58–89; PULSE 59–73; RESP 18–19; TEMP 97.6–98.2; O2SAT 96–98
[2023-01-28] MEDS: DICYCLOMINE HCL 10 MG CAP PO SCH ×3 (05:46→21:20)
[2023-01-28 05:47] LABS: Basophils # (auto) 0.1 10 ^3/uL (0-0.2); Basophils % (auto) 0.4 % (0.0-2.0); Eosinophils # (auto) 0.2 10 ^3/uL (0-0.8); Eosinophils % (auto) 1.3 % (0.0-7.0); Hematocrit 33.2 % (41.0-53.0); Hemoglobin 10.9 g/dL (13.5-17.5); Lymphocytes # (auto) 2.4 10 ^3/uL (0.4-5.4); Lymphocytes % (auto) 18.8 % (10.0-50.0); Mean Corpuscular Hemoglobin 32.2 pg (28.0-32.0); Mean Corpuscular Hgb Conc. 32.7 g/dL (32.0-36.0); Mean Corpuscular Volume 98.5 fL (80.0-100.0); Monocytes # (auto) 0.9 10 ^3/uL (0-1.3); Monocytes % (auto) 7.4 % (0.0-12.0); Neutrophils # (auto) 9.2 10 ^3/uL (1.6-8.6); Neutrophils % (auto) 72.1 % (37.0-80.0); Red Blood Cells 3.38 10^6/uL (4.5-5.90); Red Cell Distribution Width 15.9 % (11.8-14.3); White Blood Cell 12.8 10^3/uL (4.4-10.8)
[2023-01-28 06:00] LABS: Calcium 8.6 mg/dL (8.5-10.1); Potassium 4.6 mmol/L (3.5-5.1)
[2023-01-28 06:06] LABS: Albumin 2.7 g/dL (3.4-5.0); BUN/Creatinine Ratio 15.2 (10.0-20.0); Bilirubin, Total 0.5 mg/dL (0.2-1.0); Total Protein 6.3 g/dL (6.4-8.2)
[2023-01-28] MEDS: ASPirin 81 mg TAB PO SCH (09:28)
[2023-01-28] MEDS: CYANOCOBALAMIN 500 MCG TAB PO SCH (09:28)
[2023-01-28] MEDS: SODIUM BICARBONATE 650 MG TAB PO SCH ×2 (09:29→21:19)
[2023-01-28] MEDS: APIXABAN 5 MG TAB PO SCH ×2 (09:29→21:20)
[2023-01-28] MEDS: AMIODARONE HCL 200 MG TAB PO SCH ×2 (09:29→21:20)
[2023-01-28] MEDS: CITALOPRAM HYDROBR 20 MG TAB PO SCH (09:30)
[2023-01-28] MEDS: predniSONE 20 MG TAB PO SCH (09:30)
[2023-01-28] MEDS: amLODIPine BESYLATE 5 MG TAB PO SCH (09:30)
[2023-01-28] MEDS: ALLOPURINOL 100 MG TAB PO SCH (09:30)
[2023-01-28] MEDS: METOPROLOL SUCCINATE XL 50 MG TAB PO SCH (09:31)
[2023-01-28] MEDS: ATORVASTATIN 20 MG TAB PO SCH (21:19)
[2023-01-28] MEDS: traZODone HCL 50 MG TAB PO PRN (21:20)
[2023-01-29] VITALS (7 sets, daily range): BP systolic 135–145; BP diastolic 65–83; PULSE 52–67; RESP 16–20; TEMP 97.4–98.6; O2SAT 94–97
[2023-01-29] MEDS: DICYCLOMINE HCL 10 MG CAP PO SCH ×2 (05:46→14:41)
[2023-01-29 07:09] LABS: Potassium 4.5 mmol/L (3.5-5.1)
[2023-01-29 07:13] LABS: BUN/Creatinine Ratio 16.1 (10.0-20.0)
[2023-01-29] MEDS: AMIODARONE HCL 200 MG TAB PO SCH (09:50)
[2023-01-29] MEDS: APIXABAN 5 MG TAB PO SCH (09:50)
[2023-01-29] MEDS: ASPirin 81 mg TAB PO SCH (09:50)
[2023-01-29] MEDS: CITALOPRAM HYDROBR 20 MG TAB PO SCH (09:50)
[2023-01-29] MEDS: CYANOCOBALAMIN 500 MCG TAB PO SCH (09:51)
[2023-01-29] MEDS: METOPROLOL SUCCINATE XL 50 MG TAB PO SCH (09:51)
[2023-01-29] MEDS: SODIUM BICARBONATE 650 MG TAB PO SCH (09:52)
[2023-01-29] MEDS: predniSONE 20 MG TAB PO SCH (09:52)
[2023-01-29] MEDS: amLODIPine BESYLATE 5 MG TAB PO SCH (09:52)
[2023-01-29] MEDS: ALLOPURINOL 100 MG TAB PO SCH (09:52)
[2023-01-29] MEDS ORDERED: APIX5TAB PO (13:43)
[2023-01-29] MEDS ORDERED: SODI650T PO (13:43)
[2023-01-29] MEDS ORDERED: AML5T PO (13:43)
[2023-01-29] MEDS ORDERED: ASPI-325 PO (13:43)
[2023-01-29] MEDS ORDERED: METO-6 PO (13:43)
[2023-01-29] MEDS ORDERED: ALL100T PO (13:43)
[2023-01-29] MEDS ORDERED: AMIO200T33 PO (13:43)
[2023-01-29] MEDS ORDERED: ATOR20TA50 PO (13:43)
[2023-01-29] MEDS ORDERED: HYDR-4798 PO (14:00)
== END 2023-01-29 19:30 | disposition home health service (06) | DRG 683 ==
LOC: EDBD 23:12 → ER 23:12 → TELE 01-24 07:54 → DOU IN ICU 01-24 14:30 → TELE-CENTR 01-26 15:07
PROVIDERS: ADMIT Nurse Practitioner; ATTEND Nurse Practitioner
PROC: 4A00X4Z Measurement of Central Nervous Electrical Activity, External Approach (ICD-10-PCS; 2023-01-25)
PROC: 4B02XTZ Measurement of Cardiac Defibrillator, External Approach (ICD-10-PCS; principal; 2023-01-26)
DX: N17.9 Acute kidney failure, unspecified (principal); I13.0 Hypertensive heart and chronic kidney disease with heart failure and stage 1 through stage 4 chronic kidney disease, or unspecified chronic kidney disease; I47.20 Ventricular tachycardia, unspecified; I50.42 Chronic combined systolic (congestive) and diastolic (congestive) heart failure; I49.3 Ventricular premature depolarization; I49.9 Cardiac arrhythmia, unspecified; N18.32 Chronic kidney disease, stage 3b; M10.9 Gout, unspecified; E66.01 Morbid (severe) obesity due to excess calories; E87.5 Hyperkalemia; E78.5 Hyperlipidemia, unspecified; I48.91 Unspecified atrial fibrillation; E53.8 Deficiency of other specified B group vitamins; G47.00 Insomnia, unspecified; G47.30 Sleep apnea, unspecified; F14.10 Cocaine abuse, uncomplicated; E86.1 Hypovolemia; F10.10 Alcohol abuse, uncomplicated; Z68.39 Body mass index [BMI] 39.0-39.9, adult; Z87.11 Personal history of peptic ulcer disease; Z87.891 Personal history of nicotine dependence; Z86.73 Personal history of transient ischemic attack (TIA), and cerebral infarction without residual deficits; Z83.3 Family history of diabetes mellitus; Z91.148 Patient's other noncompliance with medication regimen for other reason; Z82.49 Family history of ischemic heart disease and other diseases of the circulatory system; Z79.01 Long term (current) use of anticoagulants; Z79.899 Other long term (current) drug therapy; R53.81 Other malaise; R00.1 Bradycardia, unspecified
CPT/HCPCS: 36415; 70450; 70551; 71045; 71250; 74176; 76775; 80048; 80053; 80307; 82550; 82607; 83605; 83735; 83880; 84100; 84132; 84443; 84484; 84550; 85025; 87081; 93005; 93306; 93886; 95819; 97110; 97116; 97163; 97530; G0378; J1100; J1885; J2250; J2405

== ENCOUNTER 2024-09-25 19:30 | Inpatient (IN) | payer MEDICARE, MEDICAID ==
[~2024-09-25] VITALS: Ht 175.3 cm; Wt 117.4 kg
[~2024-09-25 19:30] MED LIST changes: +AML5T PO; +ASPI-325 PO; +ATOR20TA50 PO; +CITA10TA5 PO; +HYDR-4798 PO; -PRED20TA2 PO
--- NOTE | 2024-09-25 20:10 | ED.PDOC ---
Musculoskeletal HPI Comments 69y M who presents to the ED via EMS for chief complaint of lower extremity pain. Pt states he has been having bilateral lower extremity pain and swelling for the past 4 days. Pt states he also has noted history of gout and states he is having pain in his toes and states he is out of his gout medication for the past 4 days. Pt otherwise denies chest pain, shortness of breath, fever, cough, chills, dysuria, hematuria or hematemesis. Pt otherwise denies any other symptoms at this time. Patient's medical history is significant for cardiac and diabetic concerns. Chief Complaint: Lower Extremity Time Seen by MD: 20:08 Primary Care Provider: VASILIY Reviewed Notes: Nurses Notes, Medical Staff Credentialing Coordinator Notes, Medications Allergies: Coded Allergies: NO KNOWN ALLERGIES (Unverified , 10/28/22) Home Meds Active Scripts Hydrocodone-Acetaminophen (Hydrocodone Bitartrate/AC 10-325 mg) 1 Tab Tab, 1 TAB PO Q6HP PRN for 5 Days, #20 TAB Prov:YANET ALBRIGHT NATALEE 01/29/23 Amiodarone Hcl (Amiodarone Hcl) 200 Mg Tab, 200 MG PO BID for 30 Days, #60 TAB Prov:YANET ALBRIGHT NATALEE 01/29/23 Sodium Bicarbonate (Sodium Bicarbonate) 650 Mg Tab, 1300 MG PO BID for 30 Days, #120 TAB Prov:YANET ALBRIGHT NATALEE 01/29/23 Metoprolol Succinate (Toprol Xl) 50 Mg Tab, 50 MG PO DAILY for 30 Days, #30 TAB Prov:YANET ALBRIGHT NATALEE 01/29/23 Atorvastatin Calcium (ATORVASTATIN CALCIUM) 20 Mg Tab, 20 MG PO HS for 30 Days, #30 TAB Prov:YANET ALBRIGHT NATALEE 01/29/23 Aspirin (Aspirin Low Dose) 81 Mg Tab, 81 MG PO DAILY for 30 Days, #30 TAB Prov:YANET ALBRIGHT NATALEE 01/29/23 Apixaban Base (ELIQUIS) 5 Mg Tab, 5 MG PO BID for 30 Days, #60 TAB Prov:YANET ALBRIGHT NATALEE 01/29/23 Allopurinol (ZYLOPRIM TABLET) 100 Mg Tb, 100 MG PO DAILY for 30 Days, #30 TAB Prov:YANET ALBRIGHT NATALEE 01/29/23 Amlodipine Besylate (NORVASC TABLET) 5 Mg Tb, 5 MG PO DAILY for 30 Days, #30 TAB Prov:YANET ALBRIGHT RANCH MANAGER 01/29/23 Hydrocodone-Acetaminophen (Hydrocodone Bitartrate/AC 5-325 mg) 1 Tab Tab, 1 TAB PO Q6HP PRN for 5 Days, #20 TAB Prov:YANET ALBRIGHT RANCH MANAGER 10/31/22 Amiodarone Hcl (Amiodarone Hcl) 200 Mg Tab, 1 TAB PO DAILY, #30 TAB 5 Refills Prov:YANET ALBRIGHT RANCH MANAGER 10/31/22 Pravastatin Sodium (PRAVACHOL TABLET) 20 Mg Tb, 20 MG PO DAILY for 30 Days, #30 TAB Prov:YANET ALBRIGHT RANCH MANAGER 10/31/22 Allopurinol (ZYLOPRIM TABLET) 100 Mg Tb, 50 MG PO DAILY for 30 Days, #15 TAB Prov:YANET ALBRIGHT RANCH MANAGER 10/31/22 Hydrocodone-Acetaminophen (Hydrocodone Bitartrate/AC 5-325 mg) 1 Tab Tab, 1 TAB PO TIDPRN PRN for 5 Days, #10 TAB Prov:RADHA ANGELSE MD 10/28/22 Reported Medications Citalopram Hydrobromide (Citalopram Hydrobromide) 10 Mg Tab, 10 MG PO DAILY for 30 Days, MG 01/24/23 Fenofibrate (FENOFIBRATE) 48 Mg Tab, 1 TAB PO DAILY 10/28/22 Furosemide (Furosemide) 40 Mg Tab, 1 TAB PO DAILY 10/28/22 Dicyclomine Hcl (Dicyclomine Hcl) 20 Mg Tab, 1 TAB PO TID 06/16/21 Hydroxyzine Hcl (Hydroxyzine Hcl) 50 Mg Tab, 1 TAB PO TIDPRN 06/16/21 Cholecalciferol (VITAMIN D3) 2,000 Unit Tab, 1 TAB PO DAILY, #30 TAB 5 Refills 09/15/20 Information Source: Patient, Emergency Med Personnel Mode of Arrival: EMS Location: Bilateral Extremity Location: Leg Timing: Days Prehospital treatment: None Severity: Moderate Able to Move Extremity: Yes Bear Weight: Limited Pain: Moderate Hand Dominance: Right Mechanism: Spontaneous Circumstances: Spontaneous Onset of Symptoms: Spontaneous Symptoms: Swelling, Pain DVT Risk Factors: NONE Past Medical History PAST MEDICAL HISTORY: CHF, DM, Gout, High Lipids, HTN, PUD Surgical History: Pacemaker Family History Family History: Unknown Social History Smoker: Quit Less Than 1 Year, Cigarettes Alcohol: Occasionally Drugs: Methamphetamine Lives In: Home Constitutional: denies: chills, diaphoresis, fatigue, fever, malaise, sweats, weakness, others EENTM: denies: blurred vision, double vision, ear bleeding, ear discharge, ear drainage, ear pain, ear ringing, eye pain, eye redness, hearing loss, mouth pain, mouth swelling, nasal discharge, nose bleeding, nose congestion, nose pain, photophobia, tearing, throat pain, throat swelling, voice changes, others Respiratory: denies: cough, hemoptysis, orthopnea, SOB at rest, shortness of breath, SOB with excertion, stridor, wheezing, others Cardiovascular: denies: chest pain, dizzy spells, diaphoresis, Dyspnea on exertion, edema, irregular heart beat, left arm pain, lightheadedness, palpitations, PND, syncope, others Gastrointestinal: denies: abdomen distended, abdominal pain, blood streaked bowels, constipated, diarrhea, dysphagia, difficulty swallowing, hematemesis, melena, nausea, poor appetite, poor fluid intake, rectal bleeding, rectal pain, vomiting, others Genitourinary: denies: burning, dysuria, flank pain, frequency, hematuria, incontinence, penile discharge, penile sore, pain, testicle pain, testicle swelling, urgency, others Neurological: denies: dizziness, fainting, headache, left sided numbness, left sided weakness, numbness, paresthesia, pre-existing deficit, right sided numbness, right sided weakness, seizure, speech problems, tingling, tremors, weakness, others Musculoskeletal: reports: others (Bilateral lower extremity pain and swelling); denies: back pain, gout, joint pain, joint swelling, muscle pain, muscle stiffness, neck pain Integumetry: denies: bruises, change in color, change in hair/nails, dryness, laceration, lesions, lumps, rash, wounds, others Allergic/Immunocompromised: denies: Difficulty Healing, Frequent Infections, Hives, Itching, others Hematologic/Lymphatic: denies: anemia, blood clots, easy bleeding, easy bruising, swollen glands, others Endocrine: denies: excessive hunger, excessive sweating, excessive thirst, excessive urination, flushing, intolerance to cold, intolerance to heat, unexplained weight gain, unexplained weight loss, others Psychiatric: denies: anxiety, bipolar disorder, depression, hopeless, panic disorder, schizophrenia, sleepless, suicidal, others All Other Systems: Reviewed and Negative Physical Exam General Appearance: Moderate Distress (Due to bilateral lower extremity swelling and pain concerns), Obese HEENT: Normal ENT Inspection, Pharynx Normal, TMs Normal Neck: Full Range of Motion, Non-Tender, Normal, Normal Inspection Respiratory: Chest Non-Tender, Lungs Clear, No Accessory Muscle Use, No Respiratory Distress, Normal Breath Sounds Cardiovascular: No Edema, No JVD, No Murmur, No Gallop, Normal Peripheral Pulses, Regular Rate/Rhythm Breast Exam: Deferred Gastrointestinal: No Organomegaly, Non Tender, No Pulsatile Mass, Normal Bowel Sounds, Soft Genitalia: Deferred Pelvic: Deferred Rectal: Deferred Extremities: Other (Patient displays 2+ pitting edema bilateral lower extremities. Patient's bilateral feet appear to be in poor condition. Reduced distal neurovascularly.) Neurologic: Alert, No Motor Deficits, Normal Affect, Normal Mood, No Sensory Deficits Cerebellar Function: Normal Reflexes: NOT DONE Skin: Dry, Normal Color, Warm Lymphatic: No Adenopathy Was a procedure done? Was a procedure done?: No Differential Diagnosis EXT Differential Diagnosis: Cellulitis, CHF, Gout, Septic, Other (Electrolyte abnormality, renal concerns) X-Ray, Labs, Meds, VS Vital Signs Date Time Temp Pulse Resp B/P (MAP) Pulse Ox O2 Delivery O2 Flow Rate FiO2 09/25/24 19:30 97.9 78 20 122/73 (89) 98 97.9 Lab Test 09/25/24 21:38 09/25/24 20:44 09/25/24 19:49 Range/Units Lactic Acid Level Pending 2.5 *H 0.4-2.0 mmol/L Troponin I High Sensitivity 11 14 </=54 ng/L White Blood Count 11.2 H 4.4-10.8 10^3/uL Red Blood Count 4.54 4.5-5.90 10^6/uL Hemoglobin 16.1 13.5-17.5 g/dL Hematocrit 48.4 41.0-53.0 % Mean Corpuscular Volume 106.6 H 80.0-100.0 fL Mean Corpuscular Hemoglobin 35.5 H 28.0-32.0 pg Mean Corpuscular Hemoglobin Concent 33.3 32.0-36.0 g/dL Red Cell Distribution Width 15.3 H 11.8-14.3 % Platelet Count 277 140-450 10^3/uL Mean Platelet Volume 9.0 6.9-10.8 fL Neutrophils (%) (Auto) 71.4 37.0-80.0 % Lymphocytes (%) (Auto) 11.7 10.0-50.0 % Monocytes (%) (Auto) 11.6 0.0-12.0 % Eosinophils (%) (Auto) 4.2 0.0-7.0 % Basophils (%) (Auto) 1.1 0.0-2.0 % Neutrophils # (Auto) 8.0 1.6-8.6 10 ^3/uL Lymphocytes # (Auto) 1.3 0.4-5.4 10 ^3/uL Monocytes # (Auto) 1.3 0-1.3 10 ^3/uL Eosinophils # (Auto) 0.5 0-0.8 10 ^3/uL Basophils # (Auto) 0.1 0-0.2 10 ^3/uL Nucleated Red Blood Cells 0.1 % Sodium Level 139 136-145 mmol/L Potassium Level 4.3 3.5-5.1 mmol/L Chloride Level 107 98-107 mmol/L Carbon Dioxide Level 25 20-31 mmol/L Anion Gap 7 5-15 Blood Urea Nitrogen 26 H 9-23 mg/dL Creatinine 2.25 H 0.700-1.30 mg/dL Glomerular Filtration Rate Calc 31 >90 mL/min BUN/Creatinine Ratio 11.6 10.0-20.0 Serum Glucose 87 74-106 mg/dL Uric Acid 8.5 3.7-9.2 mg/dL Calcium Level 10.6 H 8.7-10.4 mg/dL Total Bilirubin 0.7 0.2-1.0 mg/dL Aspartate Amino Transferase (AST) 32 13-40 U/L Alanine Aminotransferase (ALT) 23 7-40 U/L Alkaline Phosphatase 64 46-116 U/L B-Type Natriuretic Peptide 102.96 0-100 pg/mL Total Protein 7.8 5.7-8.2 g/dL Albumin 4.7 3.2-4.8 g/dL Lipase 54 H 12-53 U/L X-Ray, Labs, Meds, VS Comment All studies performed the ED were evaluated by me personally. Laboratories revealed an elevated lactic acid, elevated lipase as well as concerning as numbers for what appears to be acute on chronic renal injury. Patient will be admitted for fluid overload concerns as well as nephrology evaluation of renal function. Time of 1ST Reevaluation: 22:14 Reevaluation 1ST: Improved Consultation: PCP Patient Education/Counseling: Diagnosis, Treatment Family Education/Counseling: Diagnosis, Treatment, No Family Present Departure 1 Departure Time of Disposition: 22:15 Impression: Primary Impression: Acute exacerbation of CHF (congestive heart failure) Additional Impressions: [id number] kidney injury Elevated lipase Elevated lactic acid level Disposition: ADMITTED INPATIENT Condition: Stable Discharged With: Self Critical Care Note Critical Care Time?: No Stability Stability form required: No Heart Score Heart Score: Heart Score Response (Comments) Value History Slightly Suspicious 0 EKG Repolarization Disturb 1 Age >65 2 Risk Factors 1 or 2 risk factors 1 Troponin Normal limit 0 Total 4 I personally scribed for VERONICA LEWIS PAC ([email or web address]) on 09/25/24 at 20:10. Electronically submitted by Aldo Rose ([email or web address]). VERONICA LEWIS PAC Sep 25, 2024 20:10
[2024-09-25 20:32] LABS: Basophils # (auto) 0.1 10 ^3/uL (0-0.2); Basophils % (auto) 1.1 % (0.0-2.0); Eosinophils # (auto) 0.5 10 ^3/uL (0-0.8); Hemoglobin 16.1 g/dL (13.5-17.5); Lymphocytes # (auto) 1.3 10 ^3/uL (0.4-5.4); Monocytes # (auto) 1.3 10 ^3/uL (0-1.3); Nucleated Red Blood Cells % 0.1 %
[2024-09-25 20:34] LABS: Eosinophils % (auto) 4.2 % (0.0-7.0); Hematocrit 48.4 % (41.0-53.0); Lymphocytes % (auto) 11.7 % (10.0-50.0); Mean Corpuscular Hemoglobin 35.5 pg (28.0-32.0); Mean Corpuscular Hgb Conc. 33.3 g/dL (32.0-36.0); Mean Corpuscular Volume 106.6 fL (80.0-100.0); Monocytes % (auto) 11.6 % (0.0-12.0); Neutrophils % (auto) 71.4 % (37.0-80.0); Platelet Count (auto) 277 10^3/uL (140-450); Red Blood Cells 4.54 10^6/uL (4.5-5.90); Red Cell Distribution Width 15.3 % (11.8-14.3); White Blood Cell 11.2 10^3/uL (4.4-10.8)
[2024-09-25 20:48] LABS: Alanine Aminotransferase 23 U/L (7-40); Albumin 4.7 g/dL (3.2-4.8); Alkaline Phosphatase 64 U/L (46-116); Anion Gap 7 (5-15); Aspartate Aminotransferase 32 U/L (13-40); BUN/Creatinine Ratio 11.6 (10.0-20.0); Bilirubin, Total 0.7 mg/dL (0.2-1.0); Carbon Dioxide 25 mmol/L (20-31); Chloride 107 mmol/L (98-107); Glucose 87 mg/dL (74-106); Potassium 4.3 mmol/L (3.5-5.1); Sodium 139 mmol/L (136-145); Total Protein 7.8 g/dL (5.7-8.2); Uric Acid 8.5 mg/dL (3.7-9.2)
[2024-09-25 20:53] LABS: Lactic Acid w/Reflex 2.5 mmol/L (0.4-2.0)
[2024-09-25 20:54] LABS: Blood Urea Nitrogen 26 mg/dL (9-23); Calcium 10.6 mg/dL (8.7-10.4); Lipase 54 U/L (12-53)
[2024-09-25] MEDS ORDERED: DEXTROSE (50%) 50ML SYRG IV PRN (23:00)
[2024-09-25] MEDS ORDERED: ONDANSETRON HCL 4 MG/2 ML VIAL IV PRN (23:00)
[2024-09-25] MEDS ORDERED: DOCUSATE SOD 100 MG CAP PO PRN (23:00)
[2024-09-25] MEDS ORDERED: NITROGLYCERIN 0.4 MG SL TAB SL PRN (23:00)
[2024-09-25] MEDS ORDERED: MORPHINE SULFATE INJ 2 MG/ml SYRG IV PRN ×2 (23:00)
[2024-09-25] MEDS ORDERED: TEMAZEPAM 15 MG CAP PO PRN (23:00)
[2024-09-25] MEDS ORDERED: HYDROcodone-ACET 5/325MG TAB PO PRN (23:00)
--- NOTE | 2024-09-25 23:02 | DVHHP2 ---
Patient Family History: FH: obesity G8 MOTHER Family history: Diabetes mellitus G8 MOTHER G8 FATHER Tumor G8 FATHER Allergies: Coded Allergies: NO KNOWN ALLERGIES (Unverified , 10/28/22) Home Meds Active Scripts Hydrocodone-Acetaminophen (Hydrocodone Bitartrate/AC 10-325 mg) 1 Tab Tab, 1 TAB PO Q6HP PRN for 5 Days, #20 TAB Prov:YANET ALBRIGHT SENIOR CONTROLS TECHNICIAN 01/29/23 Amiodarone Hcl (Amiodarone Hcl) 200 Mg Tab, 200 MG PO BID for 30 Days, #60 TAB Prov:YANET ALBRIGHT SENIOR CONTROLS TECHNICIAN 01/29/23 Sodium Bicarbonate (Sodium Bicarbonate) 650 Mg Tab, 1300 MG PO BID for 30 Days, #120 TAB Prov:JOSE RAMONYANET Champion SENIOR CONTROLS TECHNICIAN 01/29/23 Metoprolol Succinate (Toprol Xl) 50 Mg Tab, 50 MG PO DAILY for 30 Days, #30 TAB Prov:JOSE RAMONYANET Champion SENIOR CONTROLS TECHNICIAN 01/29/23 Atorvastatin Calcium (ATORVASTATIN CALCIUM) 20 Mg Tab, 20 MG PO HS for 30 Days, #30 TAB Prov:YANET ALBRIGHT SENIOR CONTROLS TECHNICIAN 01/29/23 Aspirin (Aspirin Low Dose) 81 Mg Tab, 81 MG PO DAILY for 30 Days, #30 TAB Prov:YANET ALBRIGHT SENIOR CONTROLS TECHNICIAN 01/29/23 Apixaban Base (ELIQUIS) 5 Mg Tab, 5 MG PO BID for 30 Days, #60 TAB Prov:JOSE RAMONYANET Champion SENIOR CONTROLS TECHNICIAN 01/29/23 Allopurinol (ZYLOPRIM TABLET) 100 Mg Tb, 100 MG PO DAILY for 30 Days, #30 TAB Prov:JOSE RAMONYANET Champion SENIOR CONTROLS TECHNICIAN 01/29/23 Amlodipine Besylate (NORVASC TABLET) 5 Mg Tb, 5 MG PO DAILY for 30 Days, #30 TAB Prov:YANET ALBRIGHT SENIOR CONTROLS TECHNICIAN 01/29/23 Hydrocodone-Acetaminophen (Hydrocodone Bitartrate/AC 5-325 mg) 1 Tab Tab, 1 TAB PO Q6HP PRN for 5 Days, #20 TAB Prov:YANET ALBRIGHT SENIOR CONTROLS TECHNICIAN 10/31/22 Amiodarone Hcl (Amiodarone Hcl) 200 Mg Tab, 1 TAB PO DAILY, #30 TAB 5 Refills Prov:YANET ALBRIGHT SENIOR CONTROLS TECHNICIAN 10/31/22 Pravastatin Sodium (PRAVACHOL TABLET) 20 Mg Tb, 20 MG PO DAILY for 30 Days, #30 TAB Prov:YANET ALBRIGHT SENIOR CONTROLS TECHNICIAN 10/31/22 Allopurinol (ZYLOPRIM TABLET) 100 Mg Tb, 50 MG PO DAILY for 30 Days, #15 TAB Prov:YANET ALBRIGHT SENIOR CONTROLS TECHNICIAN 10/31/22 Hydrocodone-Acetaminophen (Hydrocodone Bitartrate/AC 5-325 mg) 1 Tab Tab, 1 TAB PO TIDPRN PRN for 5 Days, #10 TAB Prov:RADHA ANGELES MD 10/28/22 Reported Medications Citalopram Hydrobromide (Citalopram Hydrobromide) 10 Mg Tab, 10 MG PO DAILY for 30 Days, MG 01/24/23 Fenofibrate (FENOFIBRATE) 48 Mg Tab, 1 TAB PO DAILY 10/28/22 Furosemide (Furosemide) 40 Mg Tab, 1 TAB PO DAILY 10/28/22 Dicyclomine Hcl (Dicyclomine Hcl) 20 Mg Tab, 1 TAB PO TID 06/16/21 Hydroxyzine Hcl (Hydroxyzine Hcl) 50 Mg Tab, 1 TAB PO TIDPRN 06/16/21 Cholecalciferol (VITAMIN D3) 2,000 Unit Tab, 1 TAB PO DAILY, #30 TAB 5 Refills 09/15/20 Current Medications Current Medications Medications (Trade) Dose Ordered Sig/Luis Route PRN Reason Start Time Stop Time Status Last Admin Diagnostic Test (Pha) (Accu-Chek Comfort Curve T) 1 strip ACHS 09/26/24 07:00 UNV Insulin Human Regular (InsuLIN R) HS SC 09/26/24 22:00 UNV Insulin Human Regular (InsuLIN R) AC SC 09/26/24 07:00 UNV Dextrose 50 ml UD PRN IV Blood Sugar LESS THAN 60 09/25/24 23:00 UNV Acetaminophen/ Hydrocodone Bitart ([place] 5/325MG Tab) 1 tab Q4HP PRN PO MODERATE PAIN (4-6 PAIN SCALE) 09/25/24 23:00 UNV Temazepam (Restoril) 15 mg QHSP PRN PO FOR INSOMNIA 09/25/24 23:00 UNV Ondansetron HCl (Zofran) 4 mg Q4HP PRN IV NAUSEA / VOMITING 09/25/24 23:00 UNV Docusate Sodium (Colace Capsule) 100 mg BIDPRN PRN PO FOR CONSTIPATION 09/25/24 23:00 UNV Morphine Sulfate 2 mg Q4HPRN PRN IV SEVERE PAIN (7-10 PAIN SCALE) 09/25/24 23:00 UNV Nitroglycerin (Ntrostat Sublingual) 0.4 mg Q5MINP PRN SL FOR CHEST PAIN 09/25/24 23:00 UNV Morphine Sulfate 2 mg Q30M PRN IV FOR CHEST PAIN 09/25/24 23:00 UNV Vital Signs Vital Signs Date Time Temp Pulse Resp B/P (MAP) Pulse Ox O2 Delivery O2 Flow Rate FiO2 09/25/24 19:30 97.9 78 20 122/73 (89) 98 97.9 Results Labs Test 09/25/24 21:38 09/25/24 20:44 09/25/24 19:49 Range/Units Lactic Acid Level 1.3 0.4-2.0 mmol/L Troponin I High Sensitivity 11 </=54 ng/L White Blood Count 11.2 H 4.4-10.8 10^3/uL Red Blood Count 4.54 4.5-5.90 10^6/uL Hemoglobin 16.1 13.5-17.5 g/dL Hematocrit 48.4 41.0-53.0 % Mean Corpuscular Volume 106.6 H 80.0-100.0 fL Mean Corpuscular Hemoglobin 35.5 H 28.0-32.0 pg Mean Corpuscular Hemoglobin Concent 33.3 32.0-36.0 g/dL Red Cell Distribution Width 15.3 H 11.8-14.3 % Platelet Count 277 140-450 10^3/uL Mean Platelet Volume 9.0 6.9-10.8 fL Neutrophils (%) (Auto) 71.4 37.0-80.0 % Lymphocytes (%) (Auto) 11.7 10.0-50.0 % Monocytes (%) (Auto) 11.6 0.0-12.0 % Eosinophils (%) (Auto) 4.2 0.0-7.0 % Basophils (%) (Auto) 1.1 0.0-2.0 % Neutrophils # (Auto) 8.0 1.6-8.6 10 ^3/uL Lymphocytes # (Auto) 1.3 0.4-5.4 10 ^3/uL Monocytes # (Auto) 1.3 0-1.3 10 ^3/uL Eosinophils # (Auto) 0.5 0-0.8 10 ^3/uL Basophils # (Auto) 0.1 0-0.2 10 ^3/uL Nucleated Red Blood Cells 0.1 % Sodium Level 139 136-145 mmol/L Potassium Level 4.3 3.5-5.1 mmol/L Chloride Level 107 98-107 mmol/L Carbon Dioxide Level 25 20-31 mmol/L Anion Gap 7 5-15 Blood Urea Nitrogen 26 H 9-23 mg/dL Creatinine 2.25 H 0.700-1.30 mg/dL Glomerular Filtration Rate Calc 31 >90 mL/min BUN/Creatinine Ratio 11.6 10.0-20.0 Serum Glucose 87 74-106 mg/dL Uric Acid 8.5 3.7-9.2 mg/dL Calcium Level 10.6 H 8.7-10.4 mg/dL Total Bilirubin 0.7 0.2-1.0 mg/dL Aspartate Amino Transferase (AST) 32 13-40 U/L Alanine Aminotransferase (ALT) 23 7-40 U/L Alkaline Phosphatase 64 46-116 U/L B-Type Natriuretic Peptide 102.96 0-100 pg/mL Total Protein 7.8 5.7-8.2 g/dL Albumin 4.7 3.2-4.8 g/dL Lipase 54 H 12-53 U/L Admitting Diagnosis: Subjective: Chief Complaint Bilateral lower extremity pain, concern regarding past medical history for congestive heart failure, diabetes, gout, hyperlipidemia, hypertension, and peptic ulcer disease. History of Present Illness Mr. Soto presents to the emergency room with bilateral lower extremity pain. The patient reports experiencing this pain for the past 4 years. He has a history of gout and mentions being out of his gout medication for the past 4 days. The patient denies any chest pain, shortness of breath, or fever. The patient is also concerned about his past medical history, which includes congestive heart failure, diabetes, gout, hyperlipidemia, hypertension, and peptic ulcer disease. His past surgical history is significant for a pacemaker placement. Medications and Supplements - Gout medication (unspecified, patient out of it for past 4 days) - Insulin (home medication) - Atorvastatin Review of Systems - General: Bilateral lower extremity pain for 4 years - Cardiovascular: Denies chest pain - Respiratory: Denies shortness of breath - Constitutional: Denies fever Objective: Vital Signs - Temperature: 97.9F - Heart rate: 78 bpm - Respiratory rate: 20 breaths per minute - Blood pressure: 122/73 mmHg Laboratory, Imaging, and Diagnostic Test Results - White blood cell count: 11.2 - Lactic acid: 2.5 - Creatinine: 2.25 - Lipase: 57 Assessment & Plan: Acute Congestive Heart Failure Exacerbation Patient presents with a history of congestive heart failure and is being admitted for an acute exacerbation. The patient's vital signs show a blood pressure of 122/73 and pulse of 78. Laboratory results indicate an elevated creatinine level of 2.25 and lactic acid of 2.5. - Admit patient to telemetry unit - Initiate IV Lasix - Cardiology consult - Certification for admission Diabetes with Neuropathy Patient has a known history of diabetes with neuropathy. The patient reports bilateral lower extremity pain for the past 4 years, which may be related to diabetic neuropathy. - Continue home medications - Implement sliding scale insulin - Prescribe diabetic diet Gout Patient has a history of gout and reports being out of gout medication for the past 4 days. This may be contributing to the patient's lower extremity pain. - Resume patient's gout medication Hyperlipidemia Patient has a known history of hyperlipidemia. - Continue atorvastatin Hypertension Patient has a history of hypertension. Current blood pressure is 122/73. - Continue current management (no specific changes mentioned) Peptic Ulcer Disease Patient has a history of peptic ulcer disease. - Continue current management (no specific changes mentioned) Plan discussed with: Patient ROLLY AMANDA MD Sep 25, 2024 23:02
[2024-09-26] VITALS (8 sets, daily range): BP systolic 120–134; BP diastolic 68–81; PULSE 57–96; RESP 16–21; TEMP 97.9–98.6; O2SAT 92–98
[2024-09-26] MEDS: HYDROmorphone HCL 2 MG/ML VL/or syr IM ONE (00:36)
[2024-09-26] MEDS: SODIUM CHLORIDE 0.9% 1,000 ML IV ONE (00:36)
[2024-09-26] MEDS: FUROSEMIDE 40 MG/4 ML VIAL IV ONE (03:10)
[2024-09-26 03:17] LABS: Urine Bacteria None Seen /hpf (None Seen)
[2024-09-26 03:23] LABS: Urine Blood Negative /uL (Negative); Urine Clarity Clear (Clear); Urine Color Yellow (Yellow); Urine Mucus FEW (None Seen); Urine Protein, UAD TRACE (Negative); Urine Specific Gravity 1.019 (1.001-1.035); Urine Squamous Epithelial Cell FEW /hpf (<5); Urine Urobilinogen 2 mg/dL (Negative); Urine WBC 39 /HPF (0-3); Urine pH 5.5 (5.0-9.0)
[2024-09-26] MEDS ORDERED: TRAZ-181 PO (04:33)
[2024-09-26] MEDS ORDERED: APIX5TAB PO (04:33)
[2024-09-26] MEDS: ACCU-CHEK COMFORT CURVE STRIP VI SCH (06:31)
[2024-09-26] MEDS: InsuLIN REG 1unit/0.01ml Soln (100units/ml) SC SCH ×2 (06:31→21:23)
[2024-09-26 06:46] LABS: Basophils # (auto) 0.1 10 ^3/uL (0-0.2); Eosinophils # (auto) 0.5 10 ^3/uL (0-0.8); Hemoglobin 14.4 g/dL (13.5-17.5); Lymphocytes # (auto) 1.3 10 ^3/uL (0.4-5.4)
[2024-09-26 06:49] LABS: Basophils % (auto) 0.8 % (0.0-2.0); Eosinophils % (auto) 5.2 % (0.0-7.0); Hematocrit 41.6 % (41.0-53.0); Mean Corpuscular Hemoglobin 36.8 pg (28.0-32.0); Mean Corpuscular Hgb Conc. 34.6 g/dL (32.0-36.0); Mean Corpuscular Volume 106.4 fL (80.0-100.0); Monocytes # (auto) 1.4 10 ^3/uL (0-1.3); Monocytes % (auto) 13.1 % (0.0-12.0); Neutrophils % (auto) 67.9 % (37.0-80.0); Platelet Count (auto) 256 10^3/uL (140-450); Red Blood Cells 3.92 10^6/uL (4.5-5.90); Red Cell Distribution Width 14.6 % (11.8-14.3); White Blood Cell 10.3 10^3/uL (4.4-10.8)
[2024-09-26 07:05] LABS: Alanine Aminotransferase 19 U/L (7-40); Albumin 3.9 g/dL (3.2-4.8); Alkaline Phosphatase 53 U/L (46-116); Anion Gap 6 (5-15); Aspartate Aminotransferase 24 U/L (13-40); BUN/Creatinine Ratio 14.3 (10.0-20.0); Carbon Dioxide 24 mmol/L (20-31); Potassium 3.7 mmol/L (3.5-5.1); Sodium 138 mmol/L (136-145); Total Protein 6.4 g/dL (5.7-8.2)
[2024-09-26 07:06] LABS: Bilirubin, Total 0.9 mg/dL (0.2-1.0)
[2024-09-26 07:08] LABS: Blood Urea Nitrogen 30 mg/dL (9-23); Chloride 108 mmol/L (98-107); Glucose 106 mg/dL (74-106)
--- NOTE | 2024-09-26 09:09 | DVHPN2 ---
Progress Note - Dictate Date Seen: Sep 26, 2024 Medical Necessity Reason Pt with a Central, PICC or Fol: No vital signs Vital Sign Date Time Temp Pulse Resp B/P (MAP) Pulse Ox O2 Delivery O2 Flow Rate FiO2 09/26/24 05:00 98.0 69 21 120/81 (94) 96 98.0 09/26/24 03:54 Nasal Cannula* 2 28 Total Intake and Output 09/25/24 09/25/24 09/26/24 15:00 23:00 07:00 Intake Total 0 ml Output Total 300 ml Balance -300 ml medications Current Medications Medications Dose Ordered Sig/Luis Route Start Time Stop Time Status Last Admin Dose Admin Diagnostic Test (Pha) 1 strip ACHS 09/26/24 07:00 09/26/24 06:31 1 STRIP Insulin Human Regular HS SC 09/26/24 22:00 Insulin Human Regular AC SC 09/26/24 07:00 09/26/24 06:31 2 UNITS Dextrose 50 ml UD PRN IV 09/25/24 23:00 Acetaminophen/ Hydrocodone Bitart 1 tab Q4HP PRN PO 09/25/24 23:00 Temazepam 15 mg QHSP PRN PO 09/25/24 23:00 Ondansetron HCl 4 mg Q4HP PRN IV 09/25/24 23:00 Docusate Sodium 100 mg BIDPRN PRN PO 09/25/24 23:00 Morphine Sulfate 2 mg Q4HPRN PRN IV 09/25/24 23:00 Nitroglycerin 0.4 mg Q5MINP PRN SL 09/25/24 23:00 Morphine Sulfate 2 mg Q30M PRN IV 09/25/24 23:00 Allopurinol 50 mg DAILY PO 09/26/24 10:00 UNV Amiodarone HCl 200 mg DAILY PO 09/26/24 10:00 UNV Amlodipine Besylate 5 mg DAILY PO 09/26/24 10:00 UNV Atorvastatin Calcium 20 mg HS PO 09/26/24 22:00 UNV Furosemide 40 mg DAILY PO 09/26/24 10:00 UNV Metoprolol Succinate 50 mg DAILY PO 09/26/24 10:00 UNV Patient Own Medication 1 tab DAILY PO 09/26/24 10:00 UNV Apixaban 5 mg BID PO 09/26/24 10:00 UNV Pantoprazole Sodium 40 mg DAILY@0600 PO 09/26/24 09:15 UNV objective General Appearance: alert, no distress HEENT: EOMI, PERRLA, normal external inspect of ears, no icterus, no nasal drainage Neck: no carotid bruit, no jugular venous distention (JVD), no lymphadenopathy Chest: normal thorax Respiratory: clear to auscultation, normal air movement Cardiovascular: regular rate and rhythm, no diastolic murmur, no jugular venous distention (JVD), no rub, no systolic murmur Abdominal: soft, no hepatomegaly, no mass, no splenomegaly, no tenderness Genitourinary: grossly normal external Musculoskeletal: no joint tenderness, no swelling Extremities: normal pulses, no calf tenderness, no clubbing, no cyanosis, no edema Skin: no bruising, no jaundice, no rash Neurological: alert, No focal deficit laboratory and microbiology Laboratory Tests 09/26/24 05:56 Test 09/26/24 05:56 Range/Units Serum Glucose 106 74-106 mg/dL Problem List 1. HLD lipid panel 2. Gout Restart gout medications 3. Chronic anticoagulation Restart Eliquis 4. Medical Noncompliance Educate 5. ICD - Biotronik Monitor EKG, Cardiac consult 6. Morbid Obesity Diet Education 7. Peptic Ulcer Disease Medication, monitoring 8. SKD 3b medication, monitoring 9. Chronic diastolic heart failure Cardiac consult 10. DM II with hyperglycemia Insulin Sliding scale Assessment/Plan Subjective: Patient is awake and alert. Objective: Patient has a history of polysubstance abuse. Admitted for acute on chronic bilateral lower extremity pain. Patient has a history of gout, though uric acid levels are within normal limits. Plan: Restart patients home medications. Monitor EKG. Patient has chronic heart failure. Patient appears to not be in distress. Continue PRN pain medications. Plan for discharge in 12 days. Plan discussed with: Patient, Other YANET ALBRIGHT NP Sep 26, 2024 09:09
[2024-09-26] MEDS: ALLOPURINOL 100 MG TAB PO SCH (09:50)
[2024-09-26] MEDS: FENOFIBRATE 48 MG PO SCH (09:50)
[2024-09-26] MEDS: PANTOPRAZOLE 40 MG TAB PO SCH (09:54)
[2024-09-26] MEDS: FUROSEMIDE 40 MG TAB PO SCH (09:55)
[2024-09-26] MEDS: APIXABAN 5 MG TAB PO SCH (09:55)
[2024-09-26] MEDS: amLODIPine BESYLATE 5 MG TAB PO SCH (09:55)
[2024-09-26] MEDS: METOPROLOL SUCCINATE XL 50 MG TAB PO SCH (09:55)
[2024-09-26] MEDS: AMIODARONE HCL 200 MG TAB PO SCH (09:56)
[2024-09-26] MEDS ORDERED: FUROSEMIDE 40 MG/4 ML VIAL IV SCH (10:00)
[2024-09-26 10:58] LABS: LDL Cholesterol 119 mg/dL (< 100); Triglycerides 179 mg/dL (< 150)
[2024-09-26 10:59] LABS: Cholesterol 165 mg/dL (< 200)
[2024-09-26 11:00] LABS: HDL Cholesterol 27 mg/dL (40-59)
--- NOTE | 2024-09-26 14:28 | DVHINCON2 ---
Date of service: Sep 26, 2024 Reason for Consultation Acute exacerbation of CHF History of Present Illness History Source: Patient, RN Notes, MD Notes, Old Records Exam Limitations: No limitations Home Meds Active Scripts Metoprolol Succinate (Toprol Xl) 50 Mg Tab, 50 MG PO DAILY for 30 Days, #30 TAB Prov:YANET ALBRIGHT [employer]INTER [employer]EM[employer] 01/29/23 Atorvastatin Calcium (ATORVASTATIN CALCIUM) 20 Mg Tab, 20 MG PO HS for 30 Days, #30 TAB Prov:YANET ALBRIGHT [employer] 01/29/23 Amlodipine Besylate (NORVASC TABLET) 5 Mg Tb, 5 MG PO DAILY for 30 Days, #30 TAB Prov:YANET ALBRIGHT [employer] 01/29/23 Amiodarone Hcl (Amiodarone Hcl) 200 Mg Tab, 1 TAB PO DAILY, #30 TAB 5 Refills Prov:YANET ALBRIGHT [employer] 10/31/22 Pravastatin Sodium (PRAVACHOL TABLET) 20 Mg Tb, 20 MG PO DAILY for 30 Days, #30 TAB Prov:YANET ALBRIGHT [employer] 10/31/22 Allopurinol (ZYLOPRIM TABLET) 100 Mg Tb, 50 MG PO DAILY for 30 Days, #15 TAB Prov:YANET ALBRIGHT [employer] 10/31/22 Hydrocodone-Acetaminophen (Hydrocodone Bitartrate/AC 5-325 mg) 1 Tab Tab, 1 TAB PO TIDPRN PRN for 5 Days, #10 TAB Prov:RADHA ANGELES MD 10/28/22 Reported Medications Trazodone HCl (Trazodone Hydrochloride) 50 Mg Tab, 40 MG PO HSPRN, TAB 09/26/24 Apixaban Base (ELIQUIS) 5 Mg Tab, 5 MG PO TID, TAB 09/26/24 Fenofibrate (FENOFIBRATE) 48 Mg Tab, 1 TAB PO DAILY 10/28/22 Furosemide (Furosemide) 40 Mg Tab, 1 TAB PO DAILY 10/28/22 Hydroxyzine Hcl (Hydroxyzine Hcl) 50 Mg Tab, 1 TAB PO TIDPRN 06/16/21 Cholecalciferol (VITAMIN D3) 2,000 Unit Tab, 1 TAB PO DAILY, #30 TAB 5 Refills 09/15/20 Discontinued Reported Medications Citalopram Hydrobromide (Citalopram Hydrobromide) 10 Mg Tab, 10 MG PO DAILY for 30 Days, MG 01/24/23 Dicyclomine Hcl (Dicyclomine Hcl) 20 Mg Tab, 1 TAB PO TID 06/16/21 Past Medical History Cardiac: CHF Patient Family History: FH: brain tumor Brother FH: obesity G8 MOTHER Family history: Diabetes mellitus G8 MOTHER G8 FATHER Tumor G8 FATHER Review of Systems Cardiovascular: Edema H&P Exam Vital Signs Vital Signs Date Time Temp Pulse Resp B/P (MAP) Pulse Ox O2 Delivery O2 Flow Rate FiO2 09/26/24 12:41 98.6 66 18 131/68 (89) 92 98.6 09/26/24 08:00 Nasal Cannula* 2 28 General Appeara: Obese Head Exam: Normal inspection Neck Exam: Normal inspection Pulmonary/Respiratory: Rhonci Cardiovascular/Chest: Normal inspection, Edema (bilateral pedal edema), Regular rate, Normal Rhythm Abdominal Exam: Normal bowel sounds Labs/Xrays Labs Test 09/26/24 11:09 09/26/24 05:56 09/26/24 00:45 09/25/24 21:38 Range/Units POC Glucose 107 H 70-106 mg/dl White Blood Count 10.3 4.4-10.8 10^3/uL Red Blood Count 3.92 L 4.5-5.90 10^6/uL Hemoglobin 14.4 13.5-17.5 g/dL Hematocrit 41.6 # 41.0-53.0 % Mean Corpuscular Volume 106.4 H 80.0-100.0 fL Mean Corpuscular Hemoglobin 36.8 H 28.0-32.0 pg Mean Corpuscular Hemoglobin Concent 34.6 32.0-36.0 g/dL Red Cell Distribution Width 14.6 H 11.8-14.3 % Platelet Count 256 140-450 10^3/uL Mean Platelet Volume 8.3 6.9-10.8 fL Neutrophils (%) (Auto) 67.9 37.0-80.0 % Lymphocytes (%) (Auto) 13.0 10.0-50.0 % Monocytes (%) (Auto) 13.1 H 0.0-12.0 % Eosinophils (%) (Auto) 5.2 0.0-7.0 % Basophils (%) (Auto) 0.8 0.0-2.0 % Neutrophils # (Auto) 7.0 1.6-8.6 10 ^3/uL Lymphocytes # (Auto) 1.3 0.4-5.4 10 ^3/uL Monocytes # (Auto) 1.4 H 0-1.3 10 ^3/uL Eosinophils # (Auto) 0.5 0-0.8 10 ^3/uL Basophils # (Auto) 0.1 0-0.2 10 ^3/uL Nucleated Red Blood Cells 0.0 % Sodium Level 138 136-145 mmol/L Potassium Level 3.7 3.5-5.1 mmol/L Chloride Level 108 H 98-107 mmol/L Carbon Dioxide Level 24 20-31 mmol/L Anion Gap 6 5-15 Blood Urea Nitrogen 30 H 9-23 mg/dL Creatinine 2.10 H 0.700-1.30 mg/dL Glomerular Filtration Rate Calc 34 >90 mL/min BUN/Creatinine Ratio 14.3 10.0-20.0 Serum Glucose 106 74-106 mg/dL Calcium Level 10.0 8.7-10.4 mg/dL Total Bilirubin 0.9 0.2-1.0 mg/dL Aspartate Amino Transferase (AST) 24 13-40 U/L Alanine Aminotransferase (ALT) 19 7-40 U/L Alkaline Phosphatase 53 46-116 U/L Total Protein 6.4 5.7-8.2 g/dL Albumin 3.9 3.2-4.8 g/dL Triglycerides Level 179 H < 150 mg/dL Cholesterol Level 165 < 200 mg/dL LDL Cholesterol 119 H < 100 mg/dL HDL Cholesterol 27 L 40-59 mg/dL Urine Color Yellow Yellow Urine Clarity Clear Clear Urine pH 5.5 5.0-9.0 Urine Specific [place] 1.019 1.001-1.035 Urine Protein Trace H Negative Urine Ketones Negative Negative Urine Blood Negative Negative /uL Urine Nitrite Negative Negative Urine Bilirubin Negative Negative Urine Urobilinogen 2 H Negative mg/dL Urine Leukocyte Esterase 2+ Negative /uL Urine RBC 1 0 - 3 /hpf Urine Microscopic WBC 39 H 0-3 /HPF Urine Squamous Epithelial Cells Few <5 /hpf Urine Bacteria None seen None Seen /hpf Urine Mucus Few None Seen Urine Glucose Normal Normal mg/dL Lactic Acid Level 1.3 0.4-2.0 mmol/L Test 09/25/24 20:44 09/25/24 19:49 Range/Units Troponin I High Sensitivity 11 </=54 ng/L Uric Acid 8.5 3.7-9.2 mg/dL B-Type Natriuretic Peptide 102.96 0-100 pg/mL Lipase 54 H 12-53 U/L Assessment/Plan Problem List: (1) CHF (congestive heart failure) (2) Hypertension 2' Diagnosis/Co-morbidities Echocardiogram Device interrogation Plan Patient: Griffin Martel, 69-year-old male Chief Complaint: Bilateral lower extremity pain History of Present Illness: Patient presents to the emergency room with bilateral lower extremity pain, which he has experienced for the past four years. He has a history of gout and reports that he has been out of his gout medication for the past four days. Denies chest pain, shortness of breath, or palpitations. Past Medical History: Congestive heart failure Diabetes Gout Hyperlipidemia Hypertension Peptic ulcer disease History of Biotronik AICD implantation Additional Information: Patient is known to our clinic. He is concerned about his overall health, particularly his cardiac status. Assessment: Acute congestive heart failure exacerbation Plan: Cardiology recommendations: Managment in telemetry for continuous cardiac monitoring given his history of CHF and AICD. Diuretics: Initiate intravenous loop diuretics for fluid overload if clinical signs are present. Check serum electrolytes (potassium, magnesium, sodium) frequently and replace as necessary. AICD Interrogation. Echocardiogram to assess cardiac function Thank you for your consultation Further evaluation of management depends on the above in clinical course A total of 75 minutes was spent, reviewing the patient record, examining the patient, making a diagnostic and therapeutic plan, discussing this plan with the medical personnel, following up on diagnostic studies and following the patient for clinical stability, excluding any and all procedures. At least 50% of this time was spent in Direct [id number] contact. Thank you for allowing me to participate in this patients care. For recommendations will depend on patients clinical course. Please do not hesitate to contact me if you have any questions or concerns. This medical document was created using electronic medical record system with a computerized dictation system. Although this document has been carefully reviewed, there may still be some phonetic and type of graphical errors. These are purely typographical due to the imperfection of the software programs, and do not reflect any compromise in the patients medical care. Plan discussed with: Patient JOE BANKS NP Sep 26, 2024 14:28
[2024-09-26] MEDS: ATORVASTATIN 20 MG TAB PO SCH (21:23)
[2024-09-27] VITALS (8 sets, daily range): BP systolic 101–144; BP diastolic 47–88; PULSE 55–62; RESP 17–19; TEMP 97.2–97.6; O2SAT 97–99
--- NOTE | 2024-09-27 13:40 | DVHPN2 ---
Progress Note - Dictate Date Seen: Sep 27, 2024 Medical Necessity Reason Pt with a Central, PICC or Fol: No vital signs Vital Sign Date Time Temp Pulse Resp B/P (MAP) Pulse Ox O2 Delivery O2 Flow Rate FiO2 09/27/24 13:09 65 132/73 09/27/24 12:39 97.2 18 98 97.2 09/27/24 08:00 Nasal Cannula* 2 28 Total Intake and Output 09/26/24 09/26/24 09/27/24 15:00 23:00 07:00 Intake Total 1080 ml 300 ml Output Total 800 ml 450 ml Balance 280 ml -150 ml medications Current Medications Medications Dose Ordered Sig/Luis Route Start Time Stop Time Status Last Admin Dose Admin Diagnostic Test (Pha) 1 strip ACHS 09/26/24 07:00 09/27/24 11:49 1 STRIP Insulin Human Regular HS SC 09/26/24 22:00 Insulin Human Regular AC SC 09/26/24 07:00 09/27/24 11:50 2 UNITS Dextrose 50 ml UD PRN IV 09/25/24 23:00 Acetaminophen/ Hydrocodone Bitart 1 tab Q4HP PRN PO 09/25/24 23:00 Temazepam 15 mg QHSP PRN PO 09/25/24 23:00 Ondansetron HCl 4 mg Q4HP PRN IV 09/25/24 23:00 Docusate Sodium 100 mg BIDPRN PRN PO 09/25/24 23:00 Morphine Sulfate 2 mg Q4HPRN PRN IV 09/25/24 23:00 Nitroglycerin 0.4 mg Q5MINP PRN SL 09/25/24 23:00 Morphine Sulfate 2 mg Q30M PRN IV 09/25/24 23:00 Allopurinol 50 mg DAILY PO 09/26/24 10:00 09/27/24 13:08 50 MG Amiodarone HCl 200 mg DAILY PO 09/26/24 10:00 09/27/24 13:09 200 MG Amlodipine Besylate 5 mg DAILY PO 09/26/24 10:00 09/27/24 13:09 5 MG Atorvastatin Calcium 20 mg HS PO 09/26/24 22:00 09/26/24 21:23 20 MG Furosemide 40 mg DAILY PO 09/26/24 10:00 09/27/24 13:08 40 MG Metoprolol Succinate 50 mg DAILY PO 09/26/24 10:00 09/27/24 13:09 50 MG Patient Own Medication 1 tab DAILY PO 09/26/24 10:00 Apixaban 5 mg BID PO 09/26/24 10:00 09/27/24 13:10 5 MG Pantoprazole Sodium 40 mg DAILY@0600 PO 09/26/24 09:15 09/27/24 05:52 40 MG objective General Appearance: alert, no distress HEENT: EOMI, PERRLA, normal external inspect of ears, no icterus, no nasal drainage Neck: no carotid bruit, no jugular venous distention (JVD), no lymphadenopathy Chest: normal thorax Respiratory: clear to auscultation, normal air movement Cardiovascular: regular rate and rhythm, no diastolic murmur, no jugular venous distention (JVD), no rub, no systolic murmur Abdominal: soft, no hepatomegaly, no mass, no splenomegaly, no tenderness Genitourinary: grossly normal external Musculoskeletal: no joint tenderness, no swelling Extremities: normal pulses, no calf tenderness, no clubbing, no cyanosis, no edema Skin: no bruising, no jaundice, no rash Neurological: alert, No focal deficit laboratory and microbiology Laboratory Tests 09/26/24 05:56 Test 09/26/24 05:56 Range/Units Serum Glucose 106 74-106 mg/dL Problem List 1. HLD lipid panel 2. Gout Restart gout medications 3. Chronic anticoagulation Restart Eliquis 4. Medical Noncompliance Educate 5. ICD - Biotronik Monitor EKG, Cardiac consult 6. Morbid Obesity Diet Education 7. Peptic Ulcer Disease Medication, monitoring 8. CKD 3b medication, monitoring 9. Chronic diastolic heart failure Cardiac consult 10. DM II with hyperglycemia Insulin Sliding scale Assessment/Plan Subjective Patient is awake and alert. Objective Patient was admitted for intractable pain related to acute gout. Patient has been treated with as needed pain medication as well currently doing better. Patient was seen by cardiology. Waiting for pacemaker interrogation. Plan Continue current treatment. Monitor EKG. DC planning for tomorrow. Dietary Evaluation Review Recommendations by RD: Dietary education by RD Comments: 1) Initiate multivitamin @ 1 tb qd 2) Refer to outpatient RD/CD[facility] for weight management 3) Do not see need to add 60g CCHO at this time d/t controlled DM. However, will restrict concentrated sweets in patient's preferences in Computrition to promote glycemic control. 3) Consider nephrology consult d/t impaired renal function 4) Follow-up with cardiology 5) Continue to monitor I&O, labs, and skin integrity Expected Outcomes/Goals: 1) appetite and labs to improve 2) skin to improve 3) f/u in 3-5 days Plan discussed with: Patient, Other YANET ALBRIGHT INTERLOCKER Sep 27, 2024 13:40
[2024-09-28] VITALS (8 sets, daily range): BP systolic 123–136; BP diastolic 55–90; PULSE 56–75; RESP 17–20; TEMP 97.2–98.4; O2SAT 95–96
--- NOTE | 2024-09-28 09:32 | DVHSR ---
APPROVED REPORT EXAM: LIMITED Two-dimensional and M-mode echocardiogram with Doppler and color Doppler. Blood Pressure: 131/68 mmHg INDICATION Acute exacerbation of CHF RISK FACTORS Obesity: Height: 5' 9", Weight: 265 DIMENSIONS LVDd6.2 (3.8-5.7cm)LA (2D)4.0 (1.9-4.0cm)Aortic Root4.2 (2.0-3.7cm) LVDs4.5 (2.5-4.0cm)LA (MM) (1.9-4.0cm)Aortic Cusp Exc1.7 (1.5-2.0cm) EF (%) 55.0 (55-70%)Rt. Atrium (1.9-4.0cm)Asc. Aorta cm IVSd1.2 (0.7-1.1cm)RV (D) (1.8-2.4cm) PWd1.3 (0.7-1.1cm) Mitral Valve MitralMitral Stenosis E wave0.40m/sMV Mean GR.mmHg A wave0.80m/sMV Peak GR.mmHg E/A ratio0.52D MVAcm2 Aortic Valve Aortic ValveAortic Stenosis V10.90m/Ney Mean GR.5mmHg V21.50m/Ney Peak GR.9mmHg LVOT Diameter2.5 (1.8-2.4cm)Doppler AVA2.94cm2 AI P 1/2 Onxc162.91ms Pulmonic Valve V20.70m/s Other Information Quality : Technically LimitedRhythm : Technically limited study due to body habitus. Conclusion Technically difficult study secondary to poor acoustic windows. Left ventricle: Concentric left ventricular hypertrophy was seen. LVEF was around 60%. There was n o gross wall motion abnormality. Right ventricle was not well visualized. Both atrium were mildly dilated. Pacing wire was seen in r ight-sided chambers. Aortic valve was not well visualized. There was no aortic stenosis. Mild aortic insufficiency was s een. Trace mitral regurgitation was observed. Trace tricuspid regurgitation was observed. Pulmonar y valve was not well visualized. Aortic root was mildly dilated at 4.2 cm. As there was no good tricuspid regurgitation jet, right ve ntricular systolic pressure could not be estimated. There was no pericardial effusion.
[2024-09-28] MEDS ORDERED: AMIO200T33 PO (11:40)
[2024-09-28] MEDS ORDERED: FURO40TA4 PO (11:40)
[2024-09-28] MEDS ORDERED: APIX5TAB PO (11:40)
[2024-09-28] MEDS ORDERED: METO-6 PO (11:40)
[2024-09-28] MEDS ORDERED: AML5T PO (11:40)
[2024-09-28] MEDS ORDERED: FENO48TA13 PO (11:40)
[2024-09-28] MEDS ORDERED: CHOL20007 PO (11:40)
[2024-09-28] MEDS ORDERED: ATOR20TA50 PO (11:40)
[2024-09-28] MEDS ORDERED: ALL100T PO (11:40)
[2024-09-28] MEDS ORDERED: PERCOT PO (11:41)
--- NOTE | 2024-09-28 11:43 | DVHNC2 ---
Procedure - Biotronik interrogation: Remaining battery capacity: 57% VDI: 40/--- Sensing amplitude: A 3.9/RV 6.5 mV Pacing threshold: RV 1.3 volts Pacing impedance: RV 509 Ohms Shock impedance: RV 102 Ohms Atrial burden: 0.0% Pacing in ventricle: 1% Last episode: In July 2024 had episode of nonsustained ventricular tachycardia lasting 6 seconds No recent shock Normal functioning ICD. VERONICA WEBB MD Sep 28, 2024 11:43
--- NOTE | 2024-09-28 11:46 | DVHDS2 ---
Discharge Summary Date of Admission Sep 25, 2024 at 22:54 Date of Discharge: Sep 28, 2024 Labs/Diagnostic Data: Laboratory Results Test 09/28/24 06:29 09/26/24 05:56 09/26/24 00:45 09/25/24 21:38 POC Glucose 93 mg/dl (70-106) White Blood Count 10.3 10^3/uL (4.4-10.8) Red Blood Count 3.92 10^6/uL (4.5-5.90) Hemoglobin 14.4 g/dL (13.5-17.5) Hematocrit 41.6 % (41.0-53.0) Mean Corpuscular Volume 106.4 fL (80.0-100.0) Mean Corpuscular Hemoglobin 36.8 pg (28.0-32.0) Mean Corpuscular Hemoglobin Concent 34.6 g/dL (32.0-36.0) Red Cell Distribution Width 14.6 % (11.8-14.3) Platelet Count 256 10^3/uL (140-450) Mean Platelet Volume 8.3 fL (6.9-10.8) Neutrophils (%) (Auto) 67.9 % (37.0-80.0) Lymphocytes (%) (Auto) 13.0 % (10.0-50.0) Monocytes (%) (Auto) 13.1 % (0.0-12.0) Eosinophils (%) (Auto) 5.2 % (0.0-7.0) Basophils (%) (Auto) 0.8 % (0.0-2.0) Neutrophils # (Auto) 7.0 10 ^3/uL (1.6-8.6) Lymphocytes # (Auto) 1.3 10 ^3/uL (0.4-5.4) Monocytes # (Auto) 1.4 10 ^3/uL (0-1.3) Eosinophils # (Auto) 0.5 10 ^3/uL (0-0.8) Basophils # (Auto) 0.1 10 ^3/uL (0-0.2) Nucleated Red Blood Cells 0.0 % Sodium Level 138 mmol/L (136-145) Potassium Level 3.7 mmol/L (3.5-5.1) Chloride Level 108 mmol/L (98-107) Carbon Dioxide Level 24 mmol/L (20-31) Anion Gap 6 (5-15) Blood Urea Nitrogen 30 mg/dL (9-23) Creatinine 2.10 mg/dL (0.700-1.30) Glomerular Filtration Rate Calc 34 mL/min (>90) BUN/Creatinine Ratio 14.3 (10.0-20.0) Serum Glucose 106 mg/dL (74-106) Hemoglobin A1c 5.2 % A1C (<5.7) Calcium Level 10.0 mg/dL (8.7-10.4) Total Bilirubin 0.9 mg/dL (0.2-1.0) Aspartate Amino Transferase (AST) 24 U/L (13-40) Alanine Aminotransferase (ALT) 19 U/L (7-40) Alkaline Phosphatase 53 U/L (46-116) Total Protein 6.4 g/dL (5.7-8.2) Albumin 3.9 g/dL (3.2-4.8) Triglycerides Level 179 mg/dL (< 150) Cholesterol Level 165 mg/dL (< 200) LDL Cholesterol 119 mg/dL (< 100) HDL Cholesterol 27 mg/dL (40-59) Urine Color Yellow (Yellow) Urine Clarity Clear (Clear) Urine pH 5.5 (5.0-9.0) Urine Specific [place] 1.019 (1.001-1.035) Urine Protein Trace (Negative) Urine Ketones Negative (Negative) Urine Blood Negative /uL (Negative) Urine Nitrite Negative (Negative) Urine Bilirubin Negative (Negative) Urine Urobilinogen 2 mg/dL (Negative) Urine Leukocyte Esterase 2+ /uL (Negative) Urine RBC 1 /hpf (0 - 3) Urine Microscopic WBC 39 /HPF (0-3) Urine Squamous Epithelial Cells Few /hpf (<5) Urine Bacteria None seen /hpf (None Seen) Urine Mucus Few (None Seen) Urine Glucose Normal mg/dL (Normal) Lactic Acid Level 1.3 mmol/L (0.4-2.0) Test 09/25/24 20:44 09/25/24 19:49 Troponin I High Sensitivity 11 ng/L (</=54) Uric Acid 8.5 mg/dL (3.7-9.2) B-Type Natriuretic Peptide 102.96 pg/mL (0-100) Lipase 54 U/L (12-53) Other Laboratory Tests 09/26/24 05:56 Final Diagnosis/Problems List Gout attack Chronic CHF Discharge Disposition: Home Discharge Instruct/Medications Diet: Cardiac 2g Na,low cholest Activity: No Restrictions, As Tolerated Follow Up/Referral: pcp 1 week Discharge Statement: "Patient was advised to return to the ER or call 911 if any headaches, dizziness, shortness of breath, chest pain, abdominal pain, bleeding, fevers, or worsening of medical condition. Patient was counseled about treatment plan, medications, possible side effects, patientverbalized understanding. All questions were answered to the best of my ability. This discharge took greater then 30 minutes in planning, reviewing documentation, counseling the patient, and discussing with other team members." ASSESSMENT ASSESSMENT Assessment Gout attack Chronic CHF YANET ALBRIGHT NP Sep 28, 2024 11:46
--- NOTE | 2024-09-28 11:59 | DVHPN2 ---
Progress Note - Dictate Date Seen: Sep 28, 2024 Medical Necessity Reason Pt with a Central, PICC or Fol: No vital signs Vital Sign Date Time Temp Pulse Resp B/P (MAP) Pulse Ox O2 Delivery O2 Flow Rate FiO2 09/28/24 11:32 69 136/90 09/28/24 09:00 97.2 17 96 97.2 09/27/24 20:00 Nasal Cannula* 2 28 Total Intake and Output 09/27/24 09/27/24 09/28/24 15:00 23:00 07:00 Intake Total 800 ml 600 ml Balance 800 ml 600 ml medications Current Medications Medications Dose Ordered Sig/Luis Route Start Time Stop Time Status Last Admin Dose Admin Diagnostic Test (Pha) 1 strip ACHS 09/26/24 07:00 09/28/24 11:34 1 STRIP Insulin Human Regular HS SC 09/26/24 22:00 Insulin Human Regular AC SC 09/26/24 07:00 09/27/24 11:50 2 UNITS Dextrose 50 ml UD PRN IV 09/25/24 23:00 Acetaminophen/ Hydrocodone Bitart 1 tab Q4HP PRN PO 09/25/24 23:00 Temazepam 15 mg QHSP PRN PO 09/25/24 23:00 Ondansetron HCl 4 mg Q4HP PRN IV 09/25/24 23:00 Docusate Sodium 100 mg BIDPRN PRN PO 09/25/24 23:00 Morphine Sulfate 2 mg Q4HPRN PRN IV 09/25/24 23:00 Nitroglycerin 0.4 mg Q5MINP PRN SL 09/25/24 23:00 Morphine Sulfate 2 mg Q30M PRN IV 09/25/24 23:00 Allopurinol 50 mg DAILY PO 09/26/24 10:00 09/28/24 11:32 50 MG Amiodarone HCl 200 mg DAILY PO 09/26/24 10:00 09/28/24 11:33 200 MG Amlodipine Besylate 5 mg DAILY PO 09/26/24 10:00 09/28/24 11:32 5 MG Atorvastatin Calcium 20 mg HS PO 09/26/24 22:00 09/27/24 21:18 20 MG Furosemide 40 mg DAILY PO 09/26/24 10:00 09/28/24 11:32 40 MG Metoprolol Succinate 50 mg DAILY PO 09/26/24 10:00 09/28/24 11:32 50 MG Patient Own Medication 1 tab DAILY PO 09/26/24 10:00 Apixaban 5 mg BID PO 09/26/24 10:00 09/28/24 11:31 5 MG Pantoprazole Sodium 40 mg DAILY@0600 PO 09/26/24 09:15 09/28/24 06:35 40 MG laboratory and microbiology Laboratory Tests 09/26/24 05:56 Test 09/26/24 05:56 Range/Units Serum Glucose 106 74-106 mg/dL Assessment/Plan Patient is a 77-year-old gentleman who presented to the hospital with leg pain. Patient does have history of congestive heart failure and is status post ICD implantation. She usually follows with outside diesel electrician and [facility]. Cardiology is involved for cardiac aspects of care. Patient denies any recent chest pain/shortness of breath. Mentions that the last time that ICD was interrogated was few years back. Does have baseline history of noncompliance. Is disheveled In exam, not in acute distress, he is obese, has poor dentition, no JVD, pink and wet mucosa, no carotid bruit, chest: Not using accessory muscles of breathing, clear to auscultation, cardiac: Regular, no gallop/thrill/murmur, abdomen: Obese, soft, positive bowel sounds, nontender, no gross mass/hepatomegaly. Extremities: Nontender, 2+ edema bilateral, dorsalis pedis is 2+ bilateral. PMH includes diastolic congestive heart failure, history of Cardiac Arrest and s/p ICD (Biotronic), history of repeated ICD shocks (SVT/VT), history of SVT, hypertension, hyperlipidemia, dilated aortic root, Gout, peptic ulcer disease, morbid obesity, vitamin B12 deficiency, CKD, history of alcohol abuse and history of substance abuse (Meth and Marijuana). He has been on Eliquis as outpatient (reportedly for history of pulmonary emboli) Echocardiogram of August/2020 reported: EF of 65%, trivial MR/TR and Aortic root of 4.2 cm Echocardiogram of May 14, 2021 revealed ejection fraction of 60 to 65%, trace MR/PI and aortic root size of 4.5 cm Echocardiogram of October 29, 2022 revealed: Ejection fraction of 60 to 65%, mild left atrial enlargement, mild AI/MR and aortic root 4.2 cm. Echocardiogram of January 2023 had reported ejection fraction of 55-60%, left atrial enlargement, mild AI/MR/TR and right ventricular systolic pressure of 30 mm Hg Creatinine: 2.25 - 2.10 Potassium: 4.3 - 3.7 BNP: 102.96 Troponin (high sensitive): 14 - 11 Tele reveals sinus rhythm Biotronik ICD interrogation: Remaining battery capacity: 57%; VDI: 40/---; Sensing amplitude: A 3.9/RV 6.5 mV; Pacing threshold: RV 1.3 volts; Pacing impedance: RV 509 Ohms; Shock impedance: RV 102 Ohms; Atrial burden: 0.0%; Pacing in ventricle: 1%; Last episode: In July 2024 had episode of nonsustained ventricular tachycardia lasting 6 seconds; No recent shock; Normal functioning ICD. Echocardiogram revealed: Technically difficult study secondary to poor acoustic windows. Left ventricle: Concentric left ventricular hypertrophy was seen. LVEF was around 60%. There was no gross wall motion abnormality. Right ventricle was not well visualized. Both atrium were mildly dilated. Pacing wire was seen in right-sided chambers. Aortic valve was not well visualized. There was no aortic stenosis. Mild aortic insufficiency was seen. Trace mitral regurgitation was observed. Trace tricuspid regurgitation was observed. Pulmonary valve was not well visualized. Aortic root was mildly dilated at 4.2 cm. As there was no good tricuspid regurgitation jet, right ventricular systolic pressure could not be estimated. There was no pericardial effusion. Patient is a 69-year-old gentleman who presents to the hospital with flank pain. Cardiac-gonzalez does have history of Biotronik ICD. Usually follows with outside diesel electrician. As there was no recent interrogation performed, it was performed. Reveals normal functioning ICD. Did present with leg pain. Does have history of gout which could have contributed to the clinical picture? He does have old history of diastolic heart failure/cardiac arrest and has an ICD. He does abuse alcohol/drugs. Presentation is not considered acute coronary syndrome. Clinically heart failure (Diastolic) sounds to be compensated at this point. Debility PENNIE/ARF on CKD Morbid obesity History of ICD implantation (Biotronik) Noncompliance to medication and follow-ups Substance abuse Hypertension Hyperlipidemia NSVT Cardiac Suggestion for management: Manage on telemetry Follow-up electrolytes and kidney function test and correct abnormalities Chest x-ray You may consider urine toxicology Evaluation and management of flank pain/leg pain as per primary team Counseled to be compliant with medications/consultations/followups Lifestyle and risk factor modifications, counseled to avoid substance abuse Further evaluation and management depends on the above and clinical course A total of 55 minutes was spent reviewing the patient record, examining the patient, making a diagnostic and therapeutic plan, discussing this plan with medical personnel, following up on diagnostic studies and following the patient for clinical stability excluding any and all procedures. At least 50% of this time was spent in direct, [id number] contact. Thank you for allowing me to participate in this patient's care. Further recommendations will depend on patient's clinical course. Please do not hesitate to contact me if you have any questions or concerns. This medical document was created using electronic medical record system with [employer] dictation system. Although this document has been carefully reviewed, there may still be some phonetic and typographical errors. These areas are purely typographical due to the imperfection of the software programs, and do not reflect any compromise in the patient's medical care. Dietary Evaluation Review Recommendations by RD: Dietary education by RD Comments: 1) Initiate multivitamin @ 1 tb qd 2) Refer to outpatient RD/[facility] for weight management 3) Do not see need to add 60g CCHO at this time d/t controlled DM. However, will restrict concentrated sweets in patient's preferences in Computrition to promote glycemic control. 3) Consider nephrology consult d/t impaired renal function 4) Follow-up with cardiology 5) Continue to monitor I&O, labs, and skin integrity Expected Outcomes/Goals: 1) appetite and labs to improve 2) skin to improve 3) f/u in 3-5 days Plan discussed with: Patient, Other (nurse) VERONICA WEBB MD Sep 28, 2024 11:59
--- NOTE | 2024-09-28 12:04 | DVH ---
CHEST RADIOGRAPH Indication: CHF Technique: Single frontal view of the chest was obtained Comparison: XY CHEST PORTABLE on DOS: 01/25/23, CHEST PORTABLE on DOS: 06/15/21, CHEST PORTABLE on DOS: 05/12/21 FINDINGS: Lines and Tubes: Left pacemaker Lungs: No focal consolidation. Pleura: No effusion. No pneumothorax. Cardiomediastinal contours: Unremarkable Bones: No acute osseous abnormality. IMPRESSION: No acute cardiopulmonary disease.
--- NOTE | 2024-09-28 12:16 | ECG ---
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
--- NOTE | 2024-09-28 13:16 | DVH ---
EXAM: XY R KNEE 2V XRAY CLINICAL HISTORY: pain COMPARISON: None TECHNIQUE: XY R KNEE 2V XRAY Findings/Impression: 2 views of the right knee. There is no evidence of an acute fracture, dislocation, blastic, or lytic lesions. No radiopaque foreign bodies. Small joint effusion. No superficial soft tissue abnormalities.
[2024-09-29] VITALS (7 sets, daily range): BP systolic 111–143; BP diastolic 51–80; PULSE 60–69; RESP 16–18; TEMP 97.4–98.5; O2SAT 91–96
--- NOTE | 2024-09-29 07:16 | DVHPN2 ---
Progress Note - Dictate Date Seen: Sep 29, 2024 Medical Necessity Reason Pt with a Central, PICC or Fol: No vital signs Vital Sign Date Time Temp Pulse Resp B/P (MAP) Pulse Ox O2 Delivery O2 Flow Rate FiO2 09/29/24 05:01 97.7 62 16 131/70 (90) 92 97.7 09/28/24 20:00 Room Air* 0 21 Total Intake and Output 09/28/24 09/28/24 09/29/24 15:00 23:00 07:00 Intake Total 1500 ml 305 ml Output Total 180 ml Balance 1500 ml 125 ml medications Current Medications Medications Dose Ordered Sig/Luis Route Start Time Stop Time Status Last Admin Dose Admin Diagnostic Test (Pha) 1 strip ACHS 09/26/24 07:00 09/29/24 05:32 1 STRIP Insulin Human Regular HS SC 09/26/24 22:00 Insulin Human Regular AC SC 09/26/24 07:00 09/27/24 11:50 2 UNITS Dextrose 50 ml UD PRN IV 09/25/24 23:00 Acetaminophen/ Hydrocodone Bitart 1 tab Q4HP PRN PO 09/25/24 23:00 Temazepam 15 mg QHSP PRN PO 09/25/24 23:00 Ondansetron HCl 4 mg Q4HP PRN IV 09/25/24 23:00 Docusate Sodium 100 mg BIDPRN PRN PO 09/25/24 23:00 Morphine Sulfate 2 mg Q4HPRN PRN IV 09/25/24 23:00 Nitroglycerin 0.4 mg Q5MINP PRN SL 09/25/24 23:00 Morphine Sulfate 2 mg Q30M PRN IV 09/25/24 23:00 Allopurinol 50 mg DAILY PO 09/26/24 10:00 09/28/24 11:32 50 MG Amiodarone HCl 200 mg DAILY PO 09/26/24 10:00 09/28/24 11:33 200 MG Amlodipine Besylate 5 mg DAILY PO 09/26/24 10:00 09/28/24 11:32 5 MG Atorvastatin Calcium 20 mg HS PO 09/26/24 22:00 09/28/24 22:02 20 MG Furosemide 40 mg DAILY PO 09/26/24 10:00 09/28/24 11:32 40 MG Metoprolol Succinate 50 mg DAILY PO 09/26/24 10:00 09/28/24 11:32 50 MG Patient Own Medication 1 tab DAILY PO 09/26/24 10:00 Apixaban 5 mg BID PO 09/26/24 10:00 09/28/24 22:02 5 MG Pantoprazole Sodium 40 mg DAILY@0600 PO 09/26/24 09:15 09/29/24 05:30 40 MG laboratory and microbiology Laboratory Tests 09/26/24 05:56 Test 09/26/24 05:56 Range/Units Serum Glucose 106 74-106 mg/dL Assessment/Plan Patient is a 77-year-old gentleman who presented to the hospital with leg pain. Patient does have history of congestive heart failure and is status post ICD implantation. He usually follows with outside waterproofing machine operator in [facility]. Cardiology is involved for cardiac aspects of care. Patient denies any recent chest pain/shortness of breath. Mentions that the last time that ICD was interrogated was few years back. Does have baseline history of noncompliance. Is disheveled In exam, not in acute distress, he is obese, has poor dentition, no JVD, pink and wet mucosa, no carotid bruit, chest: Not using accessory muscles of breathing, clear to auscultation, cardiac: Regular, no gallop/thrill/murmur, abdomen: Obese, soft, positive bowel sounds, nontender, no gross mass/hepatomegaly. Extremities: Nontender, 2+ edema bilateral, dorsalis pedis is 2+ bilateral. PMH includes diastolic congestive heart failure, history of Cardiac Arrest and s/p ICD (Biotronic), history of repeated ICD shocks (SVT/VT), history of SVT, hypertension, hyperlipidemia, dilated aortic root, Gout, peptic ulcer disease, morbid obesity, vitamin B12 deficiency, CKD, history of alcohol abuse and history of substance abuse (Meth and Marijuana). He has been on Eliquis as outpatient (reportedly for history of pulmonary emboli) Echocardiogram of August/2020 reported: EF of 65%, trivial MR/TR and Aortic root of 4.2 cm Echocardiogram of May 14, 2021 revealed ejection fraction of 60 to 65%, trace MR/PI and aortic root size of 4.5 cm Echocardiogram of October 29, 2022 revealed: Ejection fraction of 60 to 65%, mild left atrial enlargement, mild AI/MR and aortic root 4.2 cm. Echocardiogram of January 2023 had reported ejection fraction of 55-60%, left atrial enlargement, mild AI/MR/TR and right ventricular systolic pressure of 30 mm Hg Creatinine: 2.25 - 2.10 Potassium: 4.3 - 3.7 BNP: 102.96 Troponin (high sensitive): 14 - 11 Chest x-ray revealed: IMPRESSION: No acute cardiopulmonary disease. Knee x-ray revealed: 2 views of the right knee. There is no evidence of an acute fracture, dislocation, blastic, or lytic lesions. No radiopaque foreign bodies. Small joint effusion. No superficial soft tissue abnormalities. Tele reveals sinus rhythm Biotronik ICD interrogation: Remaining battery capacity: 57%; VDI: 40/---; Sensing amplitude: A 3.9/RV 6.5 mV; Pacing threshold: RV 1.3 volts; Pacing impedance: RV 509 Ohms; Shock impedance: RV 102 Ohms; Atrial burden: 0.0%; Pacing in ventricle: 1%; Last episode: In July 2024 had episode of nonsustained ventricular tachycardia lasting 6 seconds; No recent shock; Normal functioning ICD. Echocardiogram revealed: Technically difficult study secondary to poor acoustic windows. Left ventricle: Concentric left ventricular hypertrophy was seen. LVEF was around 60%. There was no gross wall motion abnormality. Right ventricle was not well visualized. Both atrium were mildly dilated. Pacing wire was seen in right-sided chambers. Aortic valve was not well visualized. There was no aortic stenosis. Mild aortic insufficiency was seen. Trace mitral regurgitation was observed. Trace tricuspid regurgitation was observed. Pulmonary valve was not well visualized. Aortic root was mildly dilated at 4.2 cm. As there was no good tricuspid regurgitation jet, right ventricular systolic pressure could not be estimated. There was no pericardial effusion. Patient is a 69-year-old gentleman who presents to the hospital with flank pain. Cardiac-gonzalez does have history of Biotronik ICD. Usually follows with outside waterproofing machine operator. As there was no recent interrogation performed, it was performed. Reveals normal functioning ICD. Did present with leg pain. Does have history of gout which could have contributed to the clinical picture? He does have old history of diastolic heart failure/cardiac arrest and has an ICD. He does abuse alcohol/drugs. Presentation is not considered acute coronary syndrome. Clinically heart failure (Diastolic) sounds to be compensated at this point. Debility PENNIE/ARF on CKD Morbid obesity History of ICD implantation (Biotronik) Noncompliance to medication and follow-ups Substance abuse Hypertension Hyperlipidemia NSVT Cardiac Suggestion for management: Manage on telemetry Follow-up electrolytes and kidney function test and correct abnormalities You may consider urine toxicology Evaluation and management of flank pain/leg pain as per primary team Counseled to be compliant with medications/consultations/followups Lifestyle and risk factor modifications, counseled to avoid substance abuse Further evaluation and management depends on the above and clinical course A total of 55 minutes was spent reviewing the patient record, examining the patient, making a diagnostic and therapeutic plan, discussing this plan with medical personnel, following up on diagnostic studies and following the patient for clinical stability excluding any and all procedures. At least 50% of this time was spent in direct, [id number] contact. Thank you for allowing me to participate in this patient's care. Further recommendations will depend on patient's clinical course. Please do not hesitate to contact me if you have any questions or concerns. This medical document was created using electronic medical record system with [employer] computerized dictation system. Although this document has been carefully reviewed, there may still be some phonetic and typographical errors. These areas are purely typographical due to the imperfection of the software programs, and do not reflect any compromise in the patient's medical care. Dietary Evaluation Review Recommendations by RD: Dietary education by RD Comments: 1) Initiate multivitamin @ 1 tb qd 2) Refer to outpatient RD/CDCES for weight management 3) Do not see need to add 60g CCHO at this time d/t controlled DM. However, will restrict concentrated sweets in patient's preferences in Computrition to promote glycemic control. 3) Consider nephrology consult d/t impaired renal function 4) Follow-up with cardiology 5) Continue to monitor I&O, labs, and skin integrity Expected Outcomes/Goals: 1) appetite and labs to improve 2) skin to improve 3) f/u in 3-5 days Plan discussed with: Patient, Other (nurse) VERONICA WEBB MD Sep 29, 2024 07:16
[2024-09-29 11:32] LABS: Amphetamine Screen, Urine Neg (NEGATIVE); Barbiturate Scree,Urine Neg (NEGATIVE); Benzodiazephine Screen, Urine Neg (NEGATIVE); Cannabinoid Screen, Urine Pos (NEGATIVE); Cocaine Screen, Urine Neg (NEGATIVE); Opiate Scree,Urine Neg (NEGATIVE); Phencyclidine Screen, Urine Neg (NEGATIVE)
--- NOTE | 2024-09-29 12:36 | DVHPN2 ---
Progress Note - Dictate Date Seen: Sep 28, 2024 Medical Necessity Reason Pt with a Central, PICC or Fol: No vital signs Vital Sign Date Time Temp Pulse Resp B/P (MAP) Pulse Ox O2 Delivery O2 Flow Rate FiO2 09/29/24 09:54 140/80 09/29/24 09:53 69 09/29/24 09:00 97.4 18 91 97.4 09/28/24 20:00 Room Air* 0 21 Total Intake and Output 09/28/24 09/28/24 09/29/24 15:00 23:00 07:00 Intake Total 1500 ml 305 ml Output Total 180 ml Balance 1500 ml 125 ml medications Current Medications Medications Dose Ordered Sig/Luis Route Start Time Stop Time Status Last Admin Dose Admin Diagnostic Test (Pha) 1 strip ACHS 09/26/24 07:00 09/29/24 11:28 1 STRIP Insulin Human Regular HS SC 09/26/24 22:00 Insulin Human Regular AC SC 09/26/24 07:00 09/27/24 11:50 2 UNITS Dextrose 50 ml UD PRN IV 09/25/24 23:00 Acetaminophen/ Hydrocodone Bitart 1 tab Q4HP PRN PO 09/25/24 23:00 Temazepam 15 mg QHSP PRN PO 09/25/24 23:00 Ondansetron HCl 4 mg Q4HP PRN IV 09/25/24 23:00 Docusate Sodium 100 mg BIDPRN PRN PO 09/25/24 23:00 Morphine Sulfate 2 mg Q4HPRN PRN IV 09/25/24 23:00 Nitroglycerin 0.4 mg Q5MINP PRN SL 09/25/24 23:00 Morphine Sulfate 2 mg Q30M PRN IV 09/25/24 23:00 Allopurinol 50 mg DAILY PO 09/26/24 10:00 09/29/24 09:52 50 MG Amiodarone HCl 200 mg DAILY PO 09/26/24 10:00 09/29/24 09:53 200 MG Amlodipine Besylate 5 mg DAILY PO 09/26/24 10:00 09/29/24 09:53 5 MG Atorvastatin Calcium 20 mg HS PO 09/26/24 22:00 09/28/24 22:02 20 MG Furosemide 40 mg DAILY PO 09/26/24 10:00 09/29/24 09:54 40 MG Metoprolol Succinate 50 mg DAILY PO 09/26/24 10:00 09/29/24 09:53 50 MG Patient Own Medication 1 tab DAILY PO 09/26/24 10:00 Apixaban 5 mg BID PO 09/26/24 10:00 09/29/24 09:52 5 MG Pantoprazole Sodium 40 mg DAILY@0600 PO 09/26/24 09:15 09/29/24 05:30 40 MG objective General Appearance: alert, no distress HEENT: EOMI, PERRLA, normal external inspect of ears, no icterus, no nasal drainage Neck: no carotid bruit, no jugular venous distention (JVD), no lymphadenopathy Chest: normal thorax Respiratory: clear to auscultation, normal air movement Cardiovascular: regular rate and rhythm, no diastolic murmur, no jugular venous distention (JVD), no rub, no systolic murmur Abdominal: soft, no hepatomegaly, no mass, no splenomegaly, no tenderness Genitourinary: grossly normal external Musculoskeletal: no joint tenderness, no swelling Extremities: normal pulses, no calf tenderness, no clubbing, no cyanosis, no edema Skin: no bruising, no jaundice, no rash Neurological: alert, No focal deficit laboratory and microbiology Laboratory Tests 09/26/24 05:56 Test 09/26/24 05:56 Range/Units Serum Glucose 106 74-106 mg/dL Problem List 1. HLD lipid panel 2. Gout Restart gout medications 3. Chronic anticoagulation Restart Eliquis 4. Medical Noncompliance Educate 5. ICD - Biotronik Monitor EKG, Cardiac consult 6. Morbid Obesity Diet Education 7. Peptic Ulcer Disease Medication, monitoring 8. CKD 3b medication, monitoring 9. Chronic diastolic heart failure Cardiac consult 10. DM II with hyperglycemia Insulin Sliding scale Assessment/Plan Subjective: Patient is awake and alert. Objective: Patient complaining of right knee pain. Patient's home medications were adjusted. Patient had an interrogation of his pacemaker. Patient was seen and evaluated by cardiology. Patient was admitted for intractable pain due to running out of gout medications. X-ray to right knee is benign. Plan: Continue current treatment. Plan for discharge in a.m. Dietary Evaluation Review Recommendations by RD: Dietary education by RD Comments: 1) Initiate multivitamin @ 1 tb qd 2) Refer to outpatient RD/CDCES for weight management 3) Do not see need to add 60g CCHO at this time d/t controlled DM. However, will restrict concentrated sweets in patient's preferences in Comput[employer] to promote glycemic control. 3) Consider nephrology consult d/t impaired renal function 4) Follow-up with cardiology 5) Continue to monitor I&O, labs, and skin integrity Expected Outcomes/Goals: 1) appetite and labs to improve 2) skin to improve 3) f/u in 3-5 days Plan discussed with: Patient, Other YANET ALBRIGHT NP Sep 29, 2024 12:36
--- NOTE | 2024-09-29 15:36 | DVHDS2 ---
Discharge Summary Date of Admission Sep 25, 2024 at 22:54 Date of Discharge: Sep 29, 2024 Labs/Diagnostic Data: Laboratory Results Test 09/29/24 11:18 09/29/24 10:36 09/26/24 05:56 09/26/24 00:45 POC Glucose 133 mg/dl (70-106) Urine Opiates Screen Neg (NEGATIVE) Urine Fentanyl Screen Neg (NEGATIVE) Urine Barbiturates Screen Neg (NEGATIVE) Urine Phencyclidine Screen Neg (NEGATIVE) Urine Amphetamines Screen Neg (NEGATIVE) Urine Benzodiazepines Screen Neg (NEGATIVE) Urine Cocaine Screen Neg (NEGATIVE) Urine Cannabinoids Screen Pos (NEGATIVE) White Blood Count 10.3 10^3/uL (4.4-10.8) Red Blood Count 3.92 10^6/uL (4.5-5.90) Hemoglobin 14.4 g/dL (13.5-17.5) Hematocrit 41.6 % (41.0-53.0) Mean Corpuscular Volume 106.4 fL (80.0-100.0) Mean Corpuscular Hemoglobin 36.8 pg (28.0-32.0) Mean Corpuscular Hemoglobin Concent 34.6 g/dL (32.0-36.0) Red Cell Distribution Width 14.6 % (11.8-14.3) Platelet Count 256 10^3/uL (140-450) Mean Platelet Volume 8.3 fL (6.9-10.8) Neutrophils (%) (Auto) 67.9 % (37.0-80.0) Lymphocytes (%) (Auto) 13.0 % (10.0-50.0) Monocytes (%) (Auto) 13.1 % (0.0-12.0) Eosinophils (%) (Auto) 5.2 % (0.0-7.0) Basophils (%) (Auto) 0.8 % (0.0-2.0) Neutrophils # (Auto) 7.0 10 ^3/uL (1.6-8.6) Lymphocytes # (Auto) 1.3 10 ^3/uL (0.4-5.4) Monocytes # (Auto) 1.4 10 ^3/uL (0-1.3) Eosinophils # (Auto) 0.5 10 ^3/uL (0-0.8) Basophils # (Auto) 0.1 10 ^3/uL (0-0.2) Nucleated Red Blood Cells 0.0 % Sodium Level 138 mmol/L (136-145) Potassium Level 3.7 mmol/L (3.5-5.1) Chloride Level 108 mmol/L (98-107) Carbon Dioxide Level 24 mmol/L (20-31) Anion Gap 6 (5-15) Blood Urea Nitrogen 30 mg/dL (9-23) Creatinine 2.10 mg/dL (0.700-1.30) Glomerular Filtration Rate Calc 34 mL/min (>90) BUN/Creatinine Ratio 14.3 (10.0-20.0) Serum Glucose 106 mg/dL (74-106) Hemoglobin A1c 5.2 % A1C (<5.7) Calcium Level 10.0 mg/dL (8.7-10.4) Total Bilirubin 0.9 mg/dL (0.2-1.0) Aspartate Amino Transferase (AST) 24 U/L (13-40) Alanine Aminotransferase (ALT) 19 U/L (7-40) Alkaline Phosphatase 53 U/L (46-116) Total Protein 6.4 g/dL (5.7-8.2) Albumin 3.9 g/dL (3.2-4.8) Triglycerides Level 179 mg/dL (< 150) Cholesterol Level 165 mg/dL (< 200) LDL Cholesterol 119 mg/dL (< 100) HDL Cholesterol 27 mg/dL (40-59) Urine Color Yellow (Yellow) Urine Clarity Clear (Clear) Urine pH 5.5 (5.0-9.0) Urine Specific [place] 1.019 (1.001-1.035) Urine Protein Trace (Negative) Urine Ketones Negative (Negative) Urine Blood Negative /uL (Negative) Urine Nitrite Negative (Negative) Urine Bilirubin Negative (Negative) Urine Urobilinogen 2 mg/dL (Negative) Urine Leukocyte Esterase 2+ /uL (Negative) Urine RBC 1 /hpf (0 - 3) Urine Microscopic WBC 39 /HPF (0-3) Urine Squamous Epithelial Cells Few /hpf (<5) Urine Bacteria None seen /hpf (None Seen) Urine Mucus Few (None Seen) Urine Glucose Normal mg/dL (Normal) Test 09/25/24 21:38 09/25/24 20:44 09/25/24 19:49 Lactic Acid Level 1.3 mmol/L (0.4-2.0) Troponin I High Sensitivity 11 ng/L (</=54) Uric Acid 8.5 mg/dL (3.7-9.2) B-Type Natriuretic Peptide 102.96 pg/mL (0-100) Lipase 54 U/L (12-53) Other Laboratory Tests 09/26/24 05:56 Brief Hx & Hospital Course: Mr. Soto presents to the emergency room with bilateral lower extremity pain. The patient reports experiencing this pain for the past 4 years. He has a history of gout and mentions being out of his gout medication for the past 4 days. The patient denies any chest pain, shortness of breath, or fever. Patient was admitted on September 25, 2024 for intractable pain related to acute gout attack. Patient apparently ran out of his medications. Patient lives in a trailer and was unable to take several steps up into his trailer. Uric acid was within normal limits. Patient was restarted on his home medications. Patient was seen by cardiology. Pacemaker interrogation was done and pacemaker was found to be in good working order. Patient had multiple refills of all his home medications and he was instructed to follow up with his PCP, Dr. Keith, in one week. The patient received proper medical treatment and medications. Vital signs, Imaging and Laboratory Work was monitored daily. All consults recommendations were followed as provided. There were no complaints or new complaints upon discharge, all questions and concerns were answered. Patient was advised to return to the ER or call 911 if any headaches, dizziness, shortness of breath, chest pain, bleeding, fevers, or worsening of medical condition. Patient/Family was counseled about treatment plan, medications, possible side effects, patient verbalized understanding. All questions were answered to the best of my ability. The patient symptoms improved and they are okay to be DC. Condition at Discharge: Good Final Diagnosis/Problems List HLD Gout Chronic anticoagulation Medical Noncompliance ICD - [place] Morbid Obesity Peptic Ulcer Disease CKD 3b Chronic diastolic heart failure DM II with hyperglycemia Discharge Disposition: Home Discharge Instruct/Medications Diet: Cardiac 2g Na,low cholest Activity: No Restrictions, As Tolerated Follow Up/Referral: pcp 1 week Discharge Statement: "Patient was advised to return to the ER or call 911 if any headaches, dizziness, shortness of breath, chest pain, abdominal pain, bleeding, fevers, or worsening of medical condition. Patient was counseled about treatment plan, medications, possible side effects, patientverbalized understanding. All questions were answered to the best of my ability. This discharge took greater then 30 minutes in planning, reviewing documentation, counseling the patient, and discussing with other team members." ASSESSMENT ASSESSMENT Assessment Gout attack Chronic CHF YANET ALBRIGHT NP Sep 29, 2024 15:36
== END 2024-09-29 17:40 | disposition home or self-care (01) | DRG 553 ==
LOC: EDBD 19:30 → ER 19:30 → OVERFLOW 22:54 → TELE-CENTR 23:19
PROVIDERS: ADMIT Nurse Practitioner; ATTEND Nurse Practitioner
PROC: 4B02XTZ Measurement of Cardiac Defibrillator, External Approach (ICD-10-PCS; principal; 2024-09-28)
DX: M10.9 Gout, unspecified (principal); I50.33 Acute on chronic diastolic (congestive) heart failure; N17.0 Acute kidney failure with tubular necrosis; I47.10 Supraventricular tachycardia, unspecified; I13.0 Hypertensive heart and chronic kidney disease with heart failure and stage 1 through stage 4 chronic kidney disease, or unspecified chronic kidney disease; I47.20 Ventricular tachycardia, unspecified; D68.69 Other thrombophilia; E11.22 Type 2 diabetes mellitus with diabetic chronic kidney disease; E11.40 Type 2 diabetes mellitus with diabetic neuropathy, unspecified; E78.5 Hyperlipidemia, unspecified; E66.01 Morbid (severe) obesity due to excess calories; F15.10 Other stimulant abuse, uncomplicated; E11.65 Type 2 diabetes mellitus with hyperglycemia; N18.32 Chronic kidney disease, stage 3b; F10.10 Alcohol abuse, uncomplicated; Y90.9 Presence of alcohol in blood, level not specified; K27.9 Peptic ulcer, site unspecified, unspecified as acute or chronic, without hemorrhage or perforation; R74.8 Abnormal levels of other serum enzymes; Z79.891 Long term (current) use of opiate analgesic; Z79.1 Long term (current) use of non-steroidal anti-inflammatories (NSAID); Z79.82 Long term (current) use of aspirin; Z79.899 Other long term (current) drug therapy; Z79.01 Long term (current) use of anticoagulants; Z87.891 Personal history of nicotine dependence; Z83.3 Family history of diabetes mellitus; Z86.711 Personal history of pulmonary embolism; Z91.199 Patient's noncompliance with other medical treatment and regimen due to unspecified reason; Z95.810 Presence of automatic (implantable) cardiac defibrillator; Z91.148 Patient's other noncompliance with medication regimen for other reason; Z86.74 Personal history of sudden cardiac arrest; Z87.11 Personal history of peptic ulcer disease; Z68.39 Body mass index [BMI] 39.0-39.9, adult
CPT/HCPCS: 36415; 71045; 73560; 80053; 80061; 80307; 81001; 82962; 83036; 83605; 83690; 83880; 84484; 84550; 85025; 93005; 93306; G0378; J1815